=== PATIENT | male | born 1960 | race Caucasian/White ===

== ENCOUNTER 2017-09-06 12:48 | Inpatient (IN) | payer OTHER ==
[~2017-09-06 12:48] MED LIST: ISOVUE-370 76%-LOCM 1 ML ONE
[2017-09-06 13:33] LABS: #Eosinphils 0.3 thou/uL (0.0-0.7); #Lymphocytes 1.3 thou/uL (1.20-3.40); #Monocytes 0.5 thou/uL (0.11-0.59); #Neutrophils 4.6 thou/uL (1.40-6.50); %Basophils 0.2 % (0.0-1.0); %Eosinophils 4.7 % (0.0-10.0); %Lymphocytes 18.7 % (21.0-51.0); %Monocytes 7.7 % (0.0-10.0); %Neutrophils 68.6 % (42.0-75.0); Hemoglobin 12.3 g/dL (14.0-18.0); Mean Corpuscular HGB CONC 33.6 g/dL (32.0-36.0); Mean Corpuscular Hemoglobin 30.9 pg (27.0-31.0); Mean Corpuscular Volume 91.9 fl (80.0-94.0); Mean Platelet Volume 6.1 fL (7.4-10.4); Platelet Count 184 thou/uL (130-400); RBC Distribution Width 14.7 % (11.5-14.5); Red Blood Cell (RBC) Count 3.99 mill/uL (4.70-6.10); White Blood Cell (WBC) Count 6.8 thou/uL (4.8-10.8)
[2017-09-06] MEDS ORDERED: Morphine 4 MG/ML VIAL ONE (13:48)
[2017-09-06] MEDS ORDERED: Ondansetron HCl/PF 4 MG/2 ML Vial ONE (13:48)
[2017-09-06 13:55] LABS: Prothrombin Time 12.8 SEC (12.0-14.7)
[2017-09-06 13:56] LABS: CKMB 0.5 ng/mL (0-6.6); Troponin I Less than 0.010 ng/mL (< 0.028)
[2017-09-06 13:57] LABS: PTT 28.5 SEC (22.9-36.1)
[2017-09-06 13:59] LABS: ALT (SGPT) 53 U/L (8-55); AST (SGOT) 84 U/L (5-34); Albumin 3.9 g/dL (3.5-5.0); Alkaline Phosphatase 84 U/L (40-150); Anion Gap 12 mmol/L (10-20); BUN (Urea Nitrogen) 8 mg/dL (8.4-25.7); Bilirubin, Total 1.2 mg/dL (0.2-1.2); CK (CPK) 60 U/L (30-200); Calc. Creatinine Clearance 0 mL/min (70-130); Calcium 9.3 mg/dL (7.8-10.44); Carbon Dioxide 25 mmol/L (22-29); Chloride 102 mmol/L (98-107); Estimated GFR-MDRD Greater than 90; Globulin 3.3 g/dL (2.4-3.5); Glucose 176 mg/dL (70-105); Lipase 20 U/L (8-78); Potassium 3.4 mmol/L (3.5-5.1); Protein, Total 7.2 g/dL (6.0-8.3); Sodium 136 mmol/L (136-145)
--- NOTE | 2017-09-06 14:21 | RAD ---
PORTABLE CHEST ONE VIEW: Date: 09-06-17 Time: 2:07 p.m. History: Fever, rectal bleeding, abdominal pain, weakness. FINDINGS: Comparison is made with exam of 08-16-17. The heart size is normal. The lungs are expanded without focal areas of consolidation, pneumothorax, or pleural effusions. IMPRESSION: No radiographic evidence of acute cardiopulmonary process. POS: [facility]
--- NOTE | 2017-09-06 15:30 | CT ---
CT OF THE ABDOMEN AND PELVIS: DATE: 09/06/17. COMPARISON: 04/02/17. HISTORY: Abdominal pain with fever and rectal bleeding. TECHNIQUE: Serial axial CT imaging obtained at 5 mm intervals from lung bases through the pubic symphysis with I V contrast. Coronal reformatted imaging obtained. FINDINGS: Oral contrast limits assessment of the bowel. The imaged lung bases are grossly unremarkable. No free intraperitoneal air or fluid is noted. Liver is diffusely hypodense, similar when compared to prior imaging, suggesting hepatic steatosis. There is an area of relative hyperdensity within the anterior aspect of the right lobe of the liver s uperiorly on image 21, similar when compared to imaging dating back to 2015, suggesting a focal area of fatty sparing. The spleen is enlarged, measuring 17 cm in craniocaudal dimension, nonspecific and slightly more prom inent than on the 04/02/17 exam, which may be secondary to technical variation. The pancreas and adrenal glands demonstrate no acute findings. There is a stable fat-containing lesi on within the adrenal gland on the right measuring approximately 3 cm suggesting a stable adrenal mye lolipoma. There is no evidence for obstructive uropathy. The kidneys are unremarkable. There is no evidence for bowel inflammatory change or bowel obstruction. There is no evidence for ap pendicitis. There is mild scattered atherosclerotic calcification of the abdominal aorta. No pelvic or retroperitoneal lymphadenopathy is noted. There is mild mesenteric leeann prominence see n centrally, unchanged when compared to studies dating back to 2015. There is multilevel spinal osteophyte formation as well as multilevel facet hypertrophy. There is no worrisome lytic or blastic bone lesion. The liver is enlarged measuring up to 25.7 cm in craniocaudal dimension, grossly unchanged. There is mild scattered diverticulosis of the descending colon and sigmoid colon with no evidence for diverticulitis. IMPRESSION: 1. Numerous chronic findings as detailed above. No evidence for a bowel obstruction or free intrape ritoneal air. 2. The colon is not optimally assessed via CT. If symptoms persist, direct visualization may be esvin eficial. There is mild diverticulosis without evidence for diverticulitis. POS: [facility]
[2017-09-06 15:35] LABS: Bilirubin Small (Negative); Blood, Urine Negative (Negative); Clarity CLEAR (Clear); Glucose, Urine (Dipstick) Negative (Negative); Leukocyte Negative (Negative); Nitrite Negative (Negative); Protein, Urine (Dipstick) 30 mg/dL (Neg-Trace)
[2017-09-06 15:44] LABS: Bacteria/HPF None Seen HPF (None Seen); Hyaline Casts/LPF 0-3 HYALINE CAST LPF (0-3 Hyaline); RBC/HPF 0-3 HPF (0-3); Squamous Epithelial None Seen HPF (0-3); WBC/HPF 0-3 HPF (0-3)
[2017-09-06] MEDS ORDERED: metroNIDAZOLE 500 MG in Premix Bag 1 BAG IVPB SCH (17:00)
[2017-09-06 17:46] LABS: Lactic Acid 1.3 mmol/L (0.5-2.2)
[2017-09-06] MEDS ORDERED: Ondansetron ODT 4 MG TAB SL PRN (18:39)
[2017-09-06] MEDS ORDERED: Ondansetron HCl/PF 4 MG/2 ML Vial IVP PRN (18:39)
[2017-09-06] MEDS ORDERED: Morphine 4 MG/ML VIAL SLOW IVP PRN (18:39)
[2017-09-06] MEDS ORDERED: Sodium Chloride 0.9% 1,000 ML IV SCH (18:45)
[2017-09-06 20:25] VITALS: BMI 42.5
[2017-09-06] MEDS ORDERED: Dextrose 50% Abboject 50 ML SYRINGE SLOW IVP PRN (20:34)
[2017-09-06] MEDS ORDERED: Dextrose 5% in Water 1,000 ML IV PRN (20:34)
[2017-09-06] MEDS ORDERED: HumaLOG 300 UNITS/3 ML VIAL SC PRN (20:34)
[2017-09-06] MEDS ORDERED: Acetaminophen 325 MG TAB PO PRN (20:34)
[2017-09-06] MEDS: Pantoprazole 40 MG VIAL IVP SCH (21:46)
[2017-09-06] MEDS: Docusate 100 MG CAP PO SCH (21:46)
[2017-09-06] MEDS: Sodium Chloride 0.9% 1,000 ML IV SCH (21:46)
[2017-09-06] MEDS: Metoprolol Tartrate 25 MG TAB PO SCH (21:46)
[2017-09-06] MEDS: clonazePAM 1 MG TAB PO SCH (21:46)
[2017-09-06] MEDS: Gemfibrozil 600 MG TAB PO SCH (21:47)
[2017-09-06] MEDS: Morphine 4 MG/ML VIAL SLOW IVP PRN (21:47)
[2017-09-06] MEDS: metroNIDAZOLE 500 MG in Premix Bag 1 BAG IVPB SCH (22:50)
--- NOTE | 2017-09-07 00:10 | HP ---
REASON FOR ADMISSION: Rectal bleed, possible diverticulitis with abdominal pain. HISTORY OF PRESENT ILLNESS: The patient gives history of having both upper quadrant abdominal pain from yesterday. He has felt feverish at home. He had 2 episodes of bloody bowel movements at home. He states he has had colonoscopy done [place] [address] Arita. He had diverticulosis, which was not worse per Dr. Arita then. The reason for colonoscopy done in 2016 was again right-sided abdominal pain. No nausea or vomiting at present. No cough or expectoration. No prior history of peptic ulcer disease. PAST MEDICAL/SURGICAL HISTORY: Diabetes mellitus type 2, prior colonoscopy done in 2016 showed mild diverticulosis, laparoscopic cholecystectomy, psoriasis with skin involvement, dyslipidemia, hypertension, restless leg syndrome, hemorrhoidectomy, appendectomy. CURRENT MEDICATIONS: The patient is on clonazepam bedtime, metformin 1000 mg p.o. twice daily, Lopressor 100 mg twice daily, gemfibrozil 600 mg p.o. daily, hydrochlorothiazide 25 mg p.o. daily. ALLERGIES: Allergic to PENICILLIN. PERSONAL HISTORY: Does not abuse alcohol or drugs. No history of smoking. FAMILY HISTORY: Mom of heart failure at the age of 74. Father of CABG and its complications at the age of 81 years. He has had history of prostate cancer. CODE STATUS: FULL. Power of fan mail editor is his . REVIEW OF SYSTEMS: The following complete review of systems was negative, unless otherwise mentioned in the HPI or below: Constitutional: Weight loss or gain, ability to conduct usual activities. Skin: Rash, itching. Eyes: Double vision, pain. ENT/Mouth: Nose bleeding, neck stiffness, pain, tenderness. Cardiovascular: Palpitations, dyspnea on exertion, orthopnea. Respiratory: Shortness of breath, wheezing, cough, hemoptysis, fever or night sweats. Gastrointestinal: Poor appetite, abdominal pain, heartburn, nausea, vomiting, constipation, or diarrhea. Genitourinary: Urgency, frequency, dysuria, nocturia. Musculoskeletal: Pain, swelling. Neurologic/Psychiatric: Anxiety, depression. Allergy/Immunologic: Skin rash, bleeding tendency. PHYSICAL EXAMINATION: GENERAL: The patient is a 57-year-old male who is currently having mild abdominal pain. VITAL SIGNS: Blood pressure 160/100, pulse 86 per minute, respiratory rate 20 per minute, temperature 98.6 degrees Fahrenheit, saturating 95% on room air. NECK: Supple, no elevated JVD. HEENT: Eyes, extraocular muscles intact. Pupils reacting to light. Oral cavity, mucous membranes are moist. No exudates or congestion. CARDIOVASCULAR SYSTEM: S1, S2 heard. Regular rhythm. RESPIRATORY SYSTEM: Air entry 1+ bilateral. No rales or rhonchi. ABDOMEN: Soft, bowel sounds heard. There is tenderness plus in the upper quadrants. There is generalized pain in the upper quadrants, more of colicky in nature. He gets relief on lying on the left lateral side. No rigidity or guarding. Bowel sounds are heard. EXTREMITIES: No peripheral edema or calf tenderness. VASCULAR SYSTEM: Peripheral pulses 1+ bilateral. No ischemic ulcerations or gangrene. CENTRAL NERVOUS SYSTEM: No gross focal deficits seen. Patient is alert, awake , oriented well. PSYCHIATRIC: The patient is a bit anxious, otherwise no hallucinations or delusions. LABORATORY AND X-RAY FINDINGS: White count 6.8, H&H 12 and 36, platelet count 184 with 68% neutrophils, MCV is 91. PT, INR, PTT within normal limits. Serum potassium is 3.4, BUN 8, creatinine 0.7, glucose 176, AST 84, ALT 53, total bilirubin 1.2, alkaline phosphatase 84. First set of cardiac enzymes are negative. BNP is 10, albumin is 3.9. Lipase is 20. UA is negative for any infection. Stool occult blood is positive. Chest x-ray done shows no acute cardiopulmonary process. CT of the abdomen and pelvis with IV contrast done shows no bowel obstruction, no free intraperitoneal air. Colon was not optimally assessed. There is mild diverticulosis without evidence of diverticulitis. EKG done shows normal sinus rhythm at 84 beats per minute. CLINICAL IMPRESSION AND PLAN: The patient will be under observation on medical floor for 2 episodes of rectal bleeding with abdominal pain at present. It is unclear if patient has diverticulitis. His abdominal pain is in both upper quadrants, not lower. The pain is colicky in nature. He will be on morphine p.r.n. for pain. We will place him on Cipro and Flagyl for now. H&H q.6 hourly. We will consult Dr. Siddiqui for Gastroenterology. He will be kept n.p.o. and place him on normal saline at 100 mL per hour. Patient can be switched to inpatient status if his abdominal pain does not resolve or his H&H drops. We will continue to closely monitor him on medical floor. TISHA
[2017-09-07] MEDS: Morphine 4 MG/ML VIAL SLOW IVP PRN ×2 (04:58→11:02)
[2017-09-07] MEDS: metroNIDAZOLE 500 MG in Premix Bag 1 BAG IVPB SCH ×3 (05:02→21:04)
[2017-09-07 05:27] LABS: Band 17 % (5-11); Eosinophils 5 % (0-10); Hemoglobin 11.4 g/dL (14.0-18.0); Lymphocytes 33 % (21-51); MDiff Complete? YES; Mean Corpuscular HGB CONC 33.8 g/dL (32.0-36.0); Mean Corpuscular Hemoglobin 31.4 pg (27.0-31.0); Mean Corpuscular Volume 92.9 fl (80.0-94.0); Mean Platelet Volume 6.2 fL (7.4-10.4); Monocytes 8 % (0-10); Neutrophil 37 % (42-75); Platelet Count 172 thou/uL (130-400); RBC Distribution Width 14.8 % (11.5-14.5); Red Blood Cell (RBC) Count 3.64 mill/uL (4.70-6.10); White Blood Cell (WBC) Count 6.3 thou/uL (4.8-10.8)
[2017-09-07] MEDS: metFORMIN 500 MG TAB PO SCH ×2 (08:41→16:05)
[2017-09-07] MEDS: Gemfibrozil 600 MG TAB PO SCH ×2 (08:42→20:56)
[2017-09-07] MEDS: Pantoprazole 40 MG VIAL IVP SCH ×2 (08:42→20:56)
[2017-09-07] MEDS: Docusate 100 MG CAP PO SCH ×2 (08:42→20:55)
[2017-09-07] MEDS: Metoprolol Tartrate 25 MG TAB PO SCH ×2 (08:46→20:56)
[2017-09-07] MEDS: Sodium Chloride 0.9% 1,000 ML IV SCH ×2 (11:00→20:54)
--- NOTE | 2017-09-07 12:07 | PDOC.PN ---
- Subjective Encounter Start Date: 09/07/17 Encounter Start Time: 09:15 Subjective: still has upper quadrant pain -: no nausea, is npo -: no bm yet - Objective Resuscitation Status: Resuscitation Status FULL:Full Resuscitation MAR Reviewed: Yes Vital Signs & Weight: Vital Signs (12 hours) Temp Pulse Resp BP Pulse Ox 09/07/17 11:30 97.8 F 65 18 127/65 98 09/07/17 08:00 97.4 F L 68 16 09/07/17 07:30 97.4 F L 68 16 144/78 H 96 09/07/17 04:15 97.7 F 76 18 134/74 96 I&O: 09/06/17 09/07/17 09/08/17 06:59 06:59 06:59 Intake Total 811 601 Balance 811 601 Result Diagrams: 09/07/17 03:55 09/06/17 13:24 Additional Labs: Accuchecks 09/07/17 09/07/17 09/06/17 11:19 05:01 21:52 POC Glucose 112 H 131 H 99 Phys Exam - Physical Examination HEENT: PERRLA, moist MMs Neck: no JVD, supple Respiratory: no wheezing, no rales Cardiovascular: RRR, no significant murmur Gastrointestinal: soft, no distention, positive bowel sounds more tenderness in RUQ, no rigidity or guarding Musculoskeletal: pulses present Neurological: non-focal, moves all 4 limbs Psychiatric: normal affect, A&O x 3 Dx/Plan (1) Abdominal pain Code(s): R10.9 - UNSPECIFIED ABDOMINAL PAIN Status: Acute Qualifiers: Abdominal location: right upper quadrant Qualified Code(s): R10.11 - Right upper quadrant pain (2) Rectal bleeding Code(s): K62.5 - HEMORRHAGE OF ANUS AND RECTUM Status: Acute (3) HTN (hypertension) Code(s): I10 - ESSENTIAL (PRIMARY) HYPERTENSION Status: Chronic Qualifiers: Hypertension type: essential hypertension Qualified Code(s): I10 - Essential (primary) hypertension (4) DM type 2 (diabetes mellitus, type 2) Status: Chronic Qualifiers: Diabetes mellitus complication status: with unspecified complications Diabetes mellitus custodial insulin use: without custodial use Qualified Code( s): E11.8 - Type 2 diabetes mellitus with unspecified complications (5) Dyslipidemia Code(s): E78.5 - HYPERLIPIDEMIA, UNSPECIFIED Status: Chronic (6) Obesity Code(s): E66.9 - OBESITY, UNSPECIFIED Status: Chronic Qualifiers: Obesity classification: adult class 3 (BMI >= 40) Body mass index: BMI 40.0 -44.9 - Plan still has abd pain, has bandemia with normal wbc -: repeat ekg -: GI consultation -: will switch to inpatient status -: ?diverticulitis in transverse colon/pud * . Review of Systems - Medications/Allergies Allergies/Adverse Reactions: Allergies Allergy/AdvReac Type Severity Reaction Status Date / Time Penicillins Allergy Verified 09/06/17 16:53 Medications: Current Medications Acetaminophen (Tylenol) 650 mg PO Q4H PRN PRN Reason: Headache/Fever or Pain Clonazepam (Klonopin) 1 mg PO HS [facility] Last Admin: 09/06/17 21:46 Dose: 1 mg Dextrose/Water (Dextrose 50%) 25 gm SLOW IVP PRN PRN PRN Reason: Hypoglycemia Docusate Sodium (Colace) 100 mg PO BID [facility] Last Admin: 09/07/17 08:42 Dose: Not Given Gemfibrozil (Lopid) 600 mg PO BID [facility] Last Admin: 09/07/17 08:42 Dose: Not Given Glucagon (Glucagon) 1 mg IM PRN PRN PRN Reason: Hypoglycemia Ciprofloxacin/Dextrose 400 mg/ (Device) 200 mls @ 200 mls/hr IVPB Q12HR [facility] Last Admin: 09/07/17 08:41 Dose: 200 mls Dextrose/Water (D5w) 1,000 mls @ 0 mls/hr IV .Q0M PRN; As Directed PRN Reason: Hypoglycemia Metronidazole 500 mg/ Device 100 mls @ 100 mls/hr IVPB Q8HR [facility] Last Admin: 09/07/17 05:02 Dose: 100 mls Sodium Chloride (Normal Saline 0.9%) 1,000 mls @ 100 mls/hr IV .Q10H [facility] Last Admin: 09/07/17 11:00 Dose: 1,000 mls Insulin Human Lispro (Humalog) 0 units SC .MILD SLIDING SCALE PRN PRN Reason: Mild Correctional Scale Metformin HCl (Glucophage) 500 mg PO BID-AC [facility] Last Admin: 09/07/17 08:41 Dose: Not Given Metoprolol Tartrate (Lopressor) 25 mg PO BID [facility] Last Admin: 09/07/17 08:46 Dose: 25 mg Morphine Sulfate (Morphine) 4 mg SLOW IVP Q6H PRN PRN Reason: PAIN 7-10 Last Admin: 09/07/17 11:02 Dose: 4 mg Pantoprazole Sodium (Protonix) 40 mg IVP Q12HR [facility] Last Admin: 09/07/17 08:42 Dose: 40 mg Sodium Chloride (Flush - Normal Saline) 10 ml FS Q12HR [facility] Last Admin: 09/07/17 08:47 Dose: 10 ml Sodium Chloride (Flush - Normal Saline) 10 ml IVF PRN PRN PRN Reason: Saline Flush Last Admin: 09/07/17 11:00 Dose: 10 ml
[2017-09-07] MEDS: clonazePAM 1 MG TAB PO SCH (20:55)
[2017-09-08] MEDS ORDERED: Hyoscyamine Sulfate SL 0.125 mg Tablet PO PRN (00:44)
[2017-09-08] MEDS: Sodium Chloride 0.9% 1,000 ML IV SCH ×2 (04:12→23:49)
--- NOTE | 2017-09-08 05:47 | CON ---
DATE OF CONSULTATION: 09/07/2017 HISTORY OF PRESENT ILLNESS: The patient is a 57-year-old white male who reports bilateral abdominal pain in the periumbilical upper abdomen area that has been going on for several days. He had a coupl e of bloody bowel movements. He had a colonoscopy done in 06/2016 which showed diverticula, but no o ther abnormalities. He has had no nausea, vomiting, no cough, no fever or chills. PAST MEDICAL HISTORY: Significant for diabetes mellitus, diverticulosis, hypertension, psoriasis, re stless leg syndrome. PAST SURGICAL HISTORY: Hemorrhoidectomy, appendectomy. MEDICATIONS: At home include metformin 1000 mg p.o. b.i.d., hydrochlorothiazide 25 mg p.o. daily, Lo pid 600 mg p.o. b.i.d., Nexium 20 mg p.o. daily, metoprolol 100 mg p.o. daily, Klonopin 1 p.o. at bed time. ALLERGIES: PENICILLIN. SOCIAL HISTORY: Does not smoke or drink. FAMILY HISTORY: Negative for GI or liver disease. REVIEW OF SYSTEMS: Ten systems were reviewed and were negative except for above. PHYSICAL EXAMINATION: GENERAL: Shows an obese white male in no acute distress. VITAL SIGNS: Temperature 98.0, pulse 72, respiration 12, blood pressure 131/73. HEENT: Unremarkable. NECK: Supple. CHEST: Clear. CARDIOVASCULAR: Regular rate and rhythm without murmurs or gallops. ABDOMEN: Soft, nontender, without organomegaly or masses. Bowel sounds present and normoactive. RECTAL: Deferred. EXTREMITIES: Normal. NEUROLOGIC: Nonfocal. LABORATORY: Shows a white blood cell count 6.3, hemoglobin on admission was 12.3, repeat is 11.4, MC V of 92.9. PT is 12.8 with an INR of 1.0. Chemistries show potassium 3.4, glucose 176, AST of 84. Reports shows abdominal pelvic CT showed numerous chronic findings, colon is not optimally assessed b y CT scan. ASSESSMENT: 1. Abdominal pain with a small amount of GI bleeding -- this possibly could be some atypical diverti culitis. Considering the patient has had an EGD and colonoscopy approximately 15 months ago, I am no t worried about neoplasm. 2. Diabetes mellitus. 3. Obesity. RECOMMENDATIONS: 1. Continue metronidazole and Cipro for 10 days and this could be switched to oral and the patient c ould complete this as an outpatient. 2. Feeding trial. 3. Follow up with GI as outpatient. 4. Begin a diet.
[2017-09-08] MEDS: metroNIDAZOLE 500 MG in Premix Bag 1 BAG IVPB SCH ×3 (06:37→23:47)
[2017-09-08] MEDS: Gemfibrozil 600 MG TAB PO SCH ×2 (08:34→21:44)
[2017-09-08] MEDS: Docusate 100 MG CAP PO SCH ×2 (08:34→21:45)
[2017-09-08] MEDS: Metoprolol Tartrate 25 MG TAB PO SCH ×2 (08:34→21:44)
[2017-09-08] MEDS: Pantoprazole 40 MG VIAL IVP SCH (08:39)
[2017-09-08] MEDS: metFORMIN 500 MG TAB PO SCH ×2 (08:43→16:05)
--- NOTE | 2017-09-08 18:12 | PRG ---
DATE OF SERVICE: 09/08/2017 SUBJECTIVE: The patient is doing well. He complains of some abdominal cramps and bloated feeling. He has had no nausea or vomiting. He is tolerating full liquids well. He has had some yellowish liq uid bowel movements today. OBJECTIVE: VITAL SIGNS: Temperature 97.8, pulse 70, respiratory rate 16 and blood pressure 144/85. CHEST: Clear. CARDIOVASCULAR: Regular rate and rhythm. ABDOMEN: Soft and nontender, without organomegaly or masses. Bowel sounds are present. LABORATORY DATA: Shows a glucose of 107. ASSESSMENT: 1. Hematochezia - resolved. 2. Abdominal pain - may be atypical diverticulitis. 3. Diabetes mellitus. 4. Irritable bowel syndrome. RECOMMENDATIONS: 1. Continue metronidazole and Cipro for a total of 10 days. 2. Advance diet. 3. Follow up with GI as an outpatient. 4. We will sign off.
--- NOTE | 2017-09-08 20:26 | PDOC.PN ---
- Subjective Encounter Start Date: 09/08/17 Encounter Start Time: 17:30 Patient seen and examined. Abd pain + - slightly better. No new GI bleed. No overnight events - Objective Resuscitation Status: Resuscitation Status FULL:Full Resuscitation MAR Reviewed: Yes Vital Signs & Weight: Vital Signs (12 hours) Temp Pulse Resp BP Pulse Ox 09/08/17 19:40 98.7 F 79 18 133/67 96 I&O: 09/07/17 09/08/17 09/09/17 06:59 06:59 06:59 Intake Total 811 1711 Balance 811 1711 Result Diagrams: 09/07/17 03:55 09/06/17 13:24 Additional Labs: Accuchecks 09/08/17 09/08/17 09/08/17 16:28 11:44 05:26 POC Glucose 95 107 119 H 09/07/17 20:16 POC Glucose 116 H Radiology Reviewed by me: Yes (CT abd - neg) Phys Exam - Physical Examination Constitutional: NAD Respiratory: no wheezing, no rhonchi Cardiovascular: RRR, no rub Gastrointestinal: soft, positive bowel sounds mild gen tend, no guarding/rigidity Musculoskeletal: no edema Neurological: moves all 4 limbs Dx/Plan - Plan DVT proph w/SCDs IMPRESSION: 1. Acute diverticular bleed with atypical diverticulitis 2. Acute blood loss anemia 3. Hypokalemia 4. DM2 5. Morbid Obesity BMI 42.5/HTN/Anxiety/IBS/Dyslipidemia PLAN: * Change Atbx to PO - Complete 10 days per GI * Cont to advance diet * DC in AM if stable * AM labs * A1c in AM per family req * DC Metformin (Patient thinks this may be causing GI problems) * Cont to monitor Review of Systems - Review of Systems Respiratory: negative: Cough, Dry, Shortness of Breath, Hemoptysis, SOB with Excertion, Pleuritic Pain, Sputum, Wheezing Cardiovascular: negative: chest pain, palpitations, orthopnea, paroxysmal nocturnal dyspnea, edema, light headedness - Medications/Allergies Allergies/Adverse Reactions: Allergies Allergy/AdvReac Type Severity Reaction Status Date / Time Penicillins Allergy Verified 09/06/17 16:53 Medications: Current Medications Acetaminophen (Tylenol) 650 mg PO Q4H PRN PRN Reason: Headache/Fever or Pain Ciprofloxacin (Cipro) 500 mg PO 0600,2000 [facility] Clonazepam (Klonopin) 1 mg PO HS [facility] Last Admin: 09/07/17 20:55 Dose: 1 mg Dextrose/Water (Dextrose 50%) 25 gm SLOW IVP PRN PRN PRN Reason: Hypoglycemia Docusate Sodium (Colace) 100 mg PO BID [facility] Last Admin: 09/08/17 08:34 Dose: Not Given Gemfibrozil (Lopid) 600 mg PO BID [facility] Last Admin: 09/08/17 08:34 Dose: 600 mg Glucagon (Glucagon) 1 mg IM PRN PRN PRN Reason: Hypoglycemia Hyoscyamine Sulfate (Levsin Sl) 0.125 mg PO Q4H PRN PRN Reason: Pain Ciprofloxacin/Dextrose 400 mg/ (Device) 200 mls @ 200 mls/hr IVPB Q12HR [facility] Stop: 09/08/17 23:59 Last Admin: 09/08/17 08:42 Dose: 200 mls Dextrose/Water (D5w) 1,000 mls @ 0 mls/hr IV .Q0M PRN; As Directed PRN Reason: Hypoglycemia Metronidazole 500 mg/ Device 100 mls @ 100 mls/hr IVPB Q8HR [facility] Stop: 09/08/17 23:59 Last Admin: 09/08/17 14:15 Dose: 100 mls Sodium Chloride (Normal Saline 0.9%) 1,000 mls @ 50 mls/hr IV .Q20H [facility] Insulin Human Lispro (Humalog) 0 units SC .MILD SLIDING SCALE PRN PRN Reason: Mild Correctional Scale Metoprolol Tartrate (Lopressor) 25 mg PO BID [facility] Last Admin: 09/08/17 08:34 Dose: 25 mg Metronidazole (Flagyl) 500 mg PO TID [facility] Pantoprazole Sodium (Protonix) 40 mg PO DAILY [facility] Saccharomyces Boulardii (Florastor) 250 mg PO DAILY [facility] Sodium Chloride (Flush - Normal Saline) 10 ml FS Q12HR [facility] Last Admin: 09/08/17 08:39 Dose: 10 ml Sodium Chloride (Flush - Normal Saline) 10 ml IVF PRN PRN PRN Reason: Saline Flush Last Admin: 09/07/17 11:00 Dose: 10 ml
[2017-09-08] MEDS: clonazePAM 1 MG TAB PO SCH (21:44)
[2017-09-09 05:08] LABS: #Eosinphils 0.3 thou/uL (0.0-0.7); #Lymphocytes 1.8 thou/uL (1.20-3.40); #Monocytes 0.5 thou/uL (0.11-0.59); #Neutrophils 4.5 thou/uL (1.40-6.50); %Basophils 0.2 % (0.0-1.0); %Eosinophils 4.1 % (0.0-10.0); %Lymphocytes 25.9 % (21.0-51.0); %Monocytes 6.4 % (0.0-10.0); %Neutrophils 63.4 % (42.0-75.0); Hemoglobin 11.4 g/dL (14.0-18.0); Mean Corpuscular HGB CONC 33.2 g/dL (32.0-36.0); Mean Corpuscular Hemoglobin 30.8 pg (27.0-31.0); Mean Corpuscular Volume 92.8 fl (80.0-94.0); Mean Platelet Volume 6.2 fL (7.4-10.4); Platelet Count 181 thou/uL (130-400); RBC Distribution Width 14.6 % (11.5-14.5); Red Blood Cell (RBC) Count 3.71 mill/uL (4.70-6.10); White Blood Cell (WBC) Count 7.1 thou/uL (4.8-10.8)
[2017-09-09 05:37] LABS: Albumin 3.5 g/dL (3.5-5.0); Anion Gap 11 mmol/L (10-20); BUN (Urea Nitrogen) 4 mg/dL (8.4-25.7); BUN/Creatinine Ratio 5.88; Calc. Creatinine Clearance 240 mL/min (70-130); Calcium 9.1 mg/dL (7.8-10.44); Carbon Dioxide 26 mmol/L (22-29); Chloride 103 mmol/L (98-107); Estimated GFR-MDRD Greater than 90; Glucose 152 mg/dL (70-105); Magnesium 2.2 mg/dL (1.6-2.6); Phosphorus 3.6 mg/dL (2.3-4.7); Potassium 3.4 mmol/L (3.5-5.1); Sodium 137 mmol/L (136-145)
[2017-09-09] MEDS ORDERED: Ciprofloxacin 500 MG TAB PO SCH (06:00)
[2017-09-09] MEDS: Sodium Chloride 0.9% 1,000 ML IV SCH (06:27)
[2017-09-09] MEDS: Docusate 100 MG CAP PO SCH (08:41)
[2017-09-09] MEDS: metroNIDAZOLE 500 MG TAB PO SCH ×2 (08:42→15:09)
[2017-09-09] MEDS: Gemfibrozil 600 MG TAB PO SCH (08:42)
[2017-09-09] MEDS: Metoprolol Tartrate 25 MG TAB PO SCH (08:42)
[2017-09-09] MEDS ORDERED: Saccharomyces boulardii 250 MG CAP PO SCH (09:00)
--- NOTE | 2017-09-09 11:32 | PDOC.PN ---
- Subjective Encounter Start Date: 09/09/17 Encounter Start Time: 11:31 Patient seen at bedside. No abdominal pain, no further bleeding. - Objective Resuscitation Status: Resuscitation Status FULL:Full Resuscitation MAR Reviewed: Yes Vital Signs & Weight: Vital Signs (12 hours) Temp Pulse Resp BP Pulse Ox 09/09/17 08:00 97.6 F 68 20 09/09/17 07:40 97.6 F 68 20 153/81 H 97 I&O: 09/08/17 09/09/17 09/10/17 06:59 06:59 06:59 Intake Total 1711 500 360 Balance 1711 500 360 Result Diagrams: 09/09/17 03:59 09/09/17 03:59 Additional Labs: Accuchecks 09/09/17 09/08/17 09/08/17 05:33 23:55 20:01 POC Glucose 135 H 169 H 137 H 09/08/17 09/08/17 16:28 11:44 POC Glucose 95 107 Phys Exam - Physical Examination Constitutional: NAD HEENT: moist MMs Neck: no JVD Respiratory: no rales, clear to auscultation bilateral Cardiovascular: RRR Gastrointestinal: soft Musculoskeletal: pulses present Neurological: moves all 4 limbs Psychiatric: A&O x 3 Dx/Plan (1) Diverticulitis Code(s): K57.92 - DVTRCLI OF INTEST, PART UNSP, W/O PERF OR ABSCESS W/O BLEED Status: Acute (2) Rectal bleeding Code(s): K62.5 - HEMORRHAGE OF ANUS AND RECTUM Status: Acute (3) DM type 2 (diabetes mellitus, type 2) Status: Chronic Qualifiers: Diabetes mellitus complication status: with unspecified complications Diabetes mellitus long term care administrator insulin use: without half-way use Qualified Code( s): E11.8 - Type 2 diabetes mellitus with unspecified complications (4) Dyslipidemia Code(s): E78.5 - HYPERLIPIDEMIA, UNSPECIFIED Status: Chronic (5) HTN (hypertension) Code(s): I10 - ESSENTIAL (PRIMARY) HYPERTENSION Status: Chronic Qualifiers: Hypertension type: essential hypertension Qualified Code(s): I10 - Essential (primary) hypertension - Plan cont current plan of care, continue antibiotics * D/C home with PO ABX (Cipro and Flagyl). * F/U GI
[2017-09-09 16:26] VITALS: BP 153/81; TEMP 97.6
--- NOTE | 2017-09-09 19:20 | DIS ---
DATE OF ADMISSION: 09/06/2017 DATE OF DISCHARGE: 09/09/2017 DISCHARGE DISPOSITION: Home. DISCHARGE FOLLOWUP: With Dr. Arita in 4-6 weeks. DISCHARGE DIAGNOSES: 1. Hematochezia secondary to diverticular bleed. 2. Diabetes mellitus type 2. 3. Irritable bowel syndrome. 4. Hypertension. 5. Dyslipidemia. DISCHARGE MEDICATIONS: 1. Ciprofloxacin 500 mg p.o. b.i.d. for the next 7 days. 2. Klonopin 1 mg p.o. at bedtime. 3. Nexium 20 mg p.o. daily. 4. Gemfibrozil 600 mg p.o. b.i.d. a.c. 5. Hydrochlorothiazide 25 mg p.o. daily. 6. Metformin 1000 mg p.o. b.i.d. 7. Lopressor 100 mg p.o. daily. 8. Flagyl 500 mg p.o. t.i.d. for the next 7 days. 9. Florastor 250 mg p.o. daily. INPATIENT CONSULTATIONS: Dr. Siddiqui, Gastroenterology. INPATIENT PROCEDURES: None. INPATIENT RADIOGRAPHIC EXAMINATIONS: 1. Chest x-ray showed no evidence of acute cardiopulmonary process. 2. CT of the abdomen and pelvis, no evidence of bowel obstruction or free intraperitoneal air. BRIEF HOSPITAL COURSE: Mr. Ian Hines is a 57-year-old male seen with a past medical history of diabetes mellitus type 2, diverticulosis, dyslipidemia, hypertension, who presents to the emergency r oom complaining of rectal bleed. He was then subsequently admitted to the medical floor and was eval uated by Gastroenterology. Gastroenterology felt that this was most likely due to atypical diverticu litis with a subsequent diverticular bleed. He was started on IV Cipro and Flagyl. His hemoglobin h ere has remained stable. His bleeding has resolved. He has been transitioned to oral antibiotics. He will require follow up with GI for possible repeat colonoscopy and imaging. The patient is feelin g much better. He is clinically appropriate for discharge home and discharged home later today in st able condition. DISCHARGE DIET: Heart healthy, diabetic. ACTIVITY: As tolerated. RESTRICTIONS: None. CODE STATUS: FULL CODE. ALLERGIES: PENICILLINS. DISCHARGE FOLLOWUP: With GI as an outpatient. I have explained all this to the patient at bedside. He is agreeable to the plan of discharge. All questions have been answered. The patient's total discharge time 34 minutes.
--- NOTE | 2017-09-13 19:40 | EKG ---
Test Reason : Blood Pressure : / mmHG Vent. Rate : 070 BPM Atrial Rate : 070 BPM P-R Int : 194 ms QRS Dur : 158 ms QT Int : 450 ms P-R-T Axes : 030 -25 019 degrees QTc Int : 486 ms Normal sinus rhythm Right bundle branch block Abnormal ECG When compared with ECG of 06-SEP-2017 13:00, (Unconfirmed) Questionable change in QRS duration Confirmed by YESICA RENE ([id number]) on 09/13/2017 7:40:13 PM Referred By: RADHA Confirmed By:YESICA RENE
--- NOTE | 2017-09-29 15:14 | EKG ---
Test Reason : Blood Pressure : / mmHG Vent. Rate : 084 BPM Atrial Rate : 084 BPM P-R Int : 172 ms QRS Dur : 132 ms QT Int : 390 ms P-R-T Axes : 013 -45 013 degrees QTc Int : 460 ms Normal sinus rhythm Left axis deviation Right bundle branch block Minimal voltage criteria for LVH, may be normal variant Inferior infarct , age undetermined Abnormal ECG Confirmed by KIRAN TAVERAS, TREY ([id number]), fashion editor KUMAR HOWE ([id number]) on 09/29/2017 3:14:13 PM Referred By: Confirmed By:TREY BECK MD
== END 2017-09-09 15:19 | disposition home or self-care (01) | DRG 378 ==
LOC: ERS 12:48 → ONC 17:54 → OBSVTOIN 17:54
PROVIDERS: ADMIT Internal Medicine; ATTEND Internal Medicine
DX: K57.91 Diverticulosis of intestine, part unspecified, without perforation or abscess with bleeding (principal); Z68.41 Body mass index [BMI] 40.0-44.9, adult; D62 Acute posthemorrhagic anemia; E66.01 Morbid (severe) obesity due to excess calories; E11.9 Type 2 diabetes mellitus without complications; E78.5 Hyperlipidemia, unspecified; I10 Essential (primary) hypertension; K58.9 Irritable bowel syndrome, unspecified; E87.6 Hypokalemia; Z88.0 Allergy status to penicillin; Z82.49 Family history of ischemic heart disease and other diseases of the circulatory system; Z80.42 Family history of malignant neoplasm of prostate
CPT/HCPCS: 36415; 36416; 71045; 74177; 80053; 80069; 81003; 81015; 82274; 82553; 83036; 83605; 83690; 83735; 83880; 84484; 85025; 85610; 85730; 86850; 86900; 86901; 87040; 87045; 87046; 87449; 87899; 93005; 93010; 96361; 96365; 96375; A4216; C9113; J0744; J1956; J2270; J2405

== ENCOUNTER 2018-09-15 14:18 | Inpatient (IN) | payer OTHER ==
[2018-09-15 14:47] LABS: #Basophils 0.1 thou/uL (0.0-0.2); #Eosinphils 0.2 thou/uL (0.0-0.7); #Lymphocytes 1.2 thou/uL (1.20-3.40); #Monocytes 0.6 thou/uL (0.11-0.59); #Neutrophils 6.7 thou/uL (1.40-6.50); %Basophils 0.7 % (0.0-1.0); %Eosinophils 2.4 % (0.0-10.0); %Lymphocytes 13.8 % (21.0-51.0); %Monocytes 7.2 % (0.0-10.0); %Neutrophils 75.9 % (42.0-75.0); Hemoglobin 13.7 g/dL (14.0-18.0); Mean Corpuscular HGB CONC 33.9 g/dL (32.0-36.0); Mean Corpuscular Hemoglobin 30.4 pg (27.0-31.0); Mean Corpuscular Volume 89.7 fL (78.0-98.0); Mean Platelet Volume 6.6 fL (7.4-10.4); Platelet Count 235 thou/uL (130-400); RBC Distribution Width 14.8 % (11.5-14.5); White Blood Cell (WBC) Count 8.8 thou/uL (4.8-10.8)
--- NOTE | 2018-09-15 14:48 | RAD ---
PORTABLE UPRIGHT FRONTAL CHEST RADIOGRAPH: DATE: 09/15/2018. COMPARISON: 09/06/2017. HISTORY: Cough and shortness of breath. FINDINGS: There is patchy new increased density in the left lung base lateral to the left heart border suggesti ng infectious pneumonitis. No focal consolidation or pneumothorax. No pleural fluid. IMPRESSION: Patchy new left basilar opacity suspicious for infectious pneumonitis. Followup imaging following tr eatment to document resolution advised. POS: [facility]
[2018-09-15] MEDS ORDERED: Ketorolac Tromethamine 30 MG/ML VIAL ONE (15:05)
[2018-09-15] MEDS ORDERED: Dexamethasone 10 MG/ML VIAL ONE (15:05)
[2018-09-15 15:10] LABS: ALT (SGPT) 49 U/L (8-55); AST (SGOT) 67 U/L (5-34); Albumin 4.3 g/dL (3.5-5.0); Alkaline Phosphatase 99 U/L (40-150); Anion Gap 17 mmol/L (10-20); BUN (Urea Nitrogen) 10 mg/dL (8.4-25.7); Bilirubin, Total 0.9 mg/dL (0.2-1.2); Calc. Creatinine Clearance 0 mL/min (70-130); Calcium 9.4 mg/dL (7.8-10.44); Carbon Dioxide 22 mmol/L (22-29); Chloride 102 mmol/L (98-107); Estimated GFR-MDRD Greater than 90; Glucose 112 mg/dL (70-105); Protein, Total 8.3 g/dL (6.0-8.3); Sodium 137 mmol/L (136-145)
[2018-09-15] MEDS ORDERED: Temazepam 15 MG CAP PO SCH (22:45)
[2018-09-16] MEDS ORDERED: Ondansetron PF 4 MG/2 ML Vial IVP PRN (01:17)
[2018-09-16] MEDS ORDERED: Ondansetron ODT 4 MG TAB SL PRN (01:17)
[2018-09-16] MEDS ORDERED: Albuterol Sulfate 2.5 mg/3 ml Neb NEB PRN (01:19)
[2018-09-16 01:26] VITALS: BMI 42.0
[2018-09-16] MEDS ORDERED: Calcium Carbonate 500 MG ChewTAB PO PRN (05:46)
[2018-09-16] MEDS ORDERED: Bisacodyl 5 MG TAB PO PRN (05:46)
[2018-09-16] MEDS ORDERED: Acetaminophen 325 MG TAB PO PRN (05:46)
[2018-09-16] MEDS ORDERED: Senokot S 8.6-50 MG TAB PO PRN (05:46)
[2018-09-16] MEDS ORDERED: Dextrose 50% Abboject 50 ML SYRINGE SLOW IVP PRN (05:48)
[2018-09-16] MEDS ORDERED: Dextrose 5% in Water 1,000 ML IV PRN (05:48)
[2018-09-16] MEDS ORDERED: cefTRIAXone\\ROCEPHIN 2 GM in Sodium Chloride 0.9% 100 ML IVPB SCH (06:00)
[2018-09-16] MEDS ORDERED: Guaifenesin DM 100-10/5 ML UDCUP PO PRN (06:00)
[2018-09-16] MEDS: HumaLOG 300 UNITS/3 ML VIAL SC PRN ×4 (06:35→21:57)
[2018-09-16 07:31] LABS: Legionella Urinary Ag Negative (Negative); Strep pneumo Urine Ag NEGATIVE (NEGATIVE)
[2018-09-16] MEDS ORDERED: Azithromycin 500 MG in Sodium Chloride 0.9% 250 ML 250 ML IVPB SCH (08:00)
[2018-09-16] MEDS: Benzonatate 100 MG CAP PO SCH ×3 (08:48→20:26)
[2018-09-16] MEDS: Enoxaparin Sodium 40 MG/0.4 ML SYRINGE SC SCH (08:48)
[2018-09-16] MEDS: Escitalopram Oxalate 10 mg Tablet PO SCH (08:49)
[2018-09-16] MEDS: Famotidine 20 MG TAB PO SCH ×2 (08:49→20:26)
[2018-09-16] MEDS: Hydrochlorothiazide 25 MG TAB PO SCH (08:50)
[2018-09-16] MEDS: Metoprolol Tartrate 100 MG TAB PO SCH (08:50)
[2018-09-16] MEDS: Gabapentin 100 MG CAP PO SCH ×2 (08:50→21:58)
[2018-09-16] MEDS: Pioglitazone HCl 15 MG TAB PO SCH (08:50)
[2018-09-16] MEDS ORDERED: Famotidine/PF 20 mg/2ml Vial SLOW IVP SCH (09:00)
[2018-09-16 11:52] LABS: #Lymphocytes 1.1 thou/uL (1.20-3.40); #Monocytes 0.2 thou/uL (0.11-0.59); #Neutrophils 10.6 thou/uL (1.40-6.50); %Eosinophils 0.2 % (0.0-10.0); %Lymphocytes 9.1 % (21.0-51.0); %Monocytes 1.6 % (0.0-10.0); %Neutrophils 89.2 % (42.0-75.0); Hemoglobin 12.8 g/dL (14.0-18.0); Mean Corpuscular HGB CONC 33.1 g/dL (32.0-36.0); Mean Corpuscular Hemoglobin 29.6 pg (27.0-31.0); Mean Corpuscular Volume 89.4 fL (78.0-98.0); Mean Platelet Volume 6.5 fL (7.4-10.4); Platelet Count 250 thou/uL (130-400); RBC Distribution Width 14.7 % (11.5-14.5); Red Blood Cell (RBC) Count 4.33 mill/uL (4.70-6.10); White Blood Cell (WBC) Count 11.9 thou/uL (4.8-10.8)
[2018-09-16 12:41] LABS: ALT (SGPT) 38 U/L (8-55); AST (SGOT) 47 U/L (5-34); Alkaline Phosphatase 90 U/L (40-150); Anion Gap 14 mmol/L (10-20); BUN (Urea Nitrogen) 11 mg/dL (8.4-25.7); Bilirubin, Total 0.7 mg/dL (0.2-1.2); Calc. Creatinine Clearance 204 mL/min (70-130); Calcium 9.6 mg/dL (7.8-10.44); Carbon Dioxide 22 mmol/L (22-29); Chloride 103 mmol/L (98-107); Estimated GFR-MDRD Greater than 90; Globulin 3.9 g/dL (2.4-3.5); Glucose 232 mg/dL (70-105); Potassium 4.1 mmol/L (3.5-5.1); Protein, Total 7.9 g/dL (6.0-8.3); Sodium 135 mmol/L (136-145)
--- NOTE | 2018-09-16 14:26 | PDOC.PN ---
- Subjective Encounter Start Date: 09/16/18 Encounter Start Time: 08:00 Subjective: Continues with cough, no hemoptysis. Afebrile. -: Upper abdo discomfort and chest soreness due to coughing fits. -: Denies any n/v. No headaches. No dizziness. Eating/drinking. Hx of pneumonia in the past. Also history of bronchitis 2-3 times a year. - Objective Resuscitation Status - Order Detail: 09/16/18 05:46 Resuscitation Status Routine Resuscitation Status: FULL: Full Resuscitation Vital Signs & Weight: Vital Signs (12 hours) Temp Pulse Resp BP Pulse Ox 09/16/18 11:09 98.3 F 70 18 163/79 H 96 09/16/18 07:20 98.3 F 75 17 164/82 H 100 09/16/18 02:57 97.7 F 83 24 H 139/66 97 09/16/18 02:33 76 12 93 L Weight Weight 301 lb 4.8 oz I&O: 09/15/18 09/16/18 09/17/18 06:59 06:59 06:59 Intake Total 200 360 Output Total 425 Balance -225 360 Result Diagrams: 09/16/18 11:35 09/16/18 11:35 Additional Labs: Accuchecks 09/16/18 09/16/18 10:26 06:29 POC Glucose 220 H 204 H Phys Exam - Physical Examination Constitutional: NAD HEENT: PERRLA, moist MMs Neck: no nodes, supple, full ROM Respiratory: no wheezing bibasalar rales Cardiovascular: RRR, no significant murmur Gastrointestinal: soft, no distention, positive bowel sounds Mildly sore with palpation of upper abdomen No guarding/rigidity Musculoskeletal: no edema, pulses present Neurological: non-focal, normal sensation, moves all 4 limbs Psychiatric: normal affect, A&O x 3 Skin: no rash, normal turgor Dx/Plan (1) Pneumonia Code(s): J18.9 - PNEUMONIA, UNSPECIFIED ORGANISM Status: Acute Qualifiers: Lung location: lower lobe of lung (2) DM type 2 (diabetes mellitus, type 2) Status: Chronic Qualifiers: Diabetes mellitus intermediate school teacher insulin use: without alf use Diabetes mellitus complication status: with unspecified complications Qualified Code(s) : E11.8 - Type 2 diabetes mellitus with unspecified complications (3) Dyslipidemia Code(s): E78.5 - HYPERLIPIDEMIA, UNSPECIFIED Status: Chronic (4) HTN (hypertension) Code(s): I10 - ESSENTIAL (PRIMARY) HYPERTENSION Status: Chronic Qualifiers: Hypertension type: essential hypertension Qualified Code(s): I10 - Essential (primary) hypertension (5) Obesity Code(s): E66.9 - OBESITY, UNSPECIFIED Status: Chronic Qualifiers: Obesity classification: adult class 3 (BMI >= 40) Body mass index: BMI 40.0 -44.9 - Plan cont current plan of care, continue antibiotics, out of bed/ambulate Awaiting pulmonary. -: Resp culture requested -: Continue nebs. -: Guaifenesin for cough. -: Check labs today. * .
[2018-09-16] MEDS: Budesonide 0.25 MG/2 ML NEB INH SCH ×2 (15:08→18:12)
[2018-09-16] MEDS: cefTRIAXone\\ROCEPHIN 2 GM in Sodium Chloride 0.9% 100 ML IVPB SCH (19:48)
[2018-09-16] MEDS: Rosuvastatin 10 MG TAB PO SCH (20:26)
[2018-09-16] MEDS: guaiFENesin ER 600 MG TAB PO SCH (20:27)
--- NOTE | 2018-09-16 21:22 | HP ---
CHIEF COMPLAINT: Shortness of breath. HISTORY OF PRESENT ILLNESS: This is a 58-year-old male with past medical history significant for diabetes mellitus type 2, hyperlipidemia, hypertension, and restless legs syndrome, presenting with cough and shortness of breath. The patient has shortness of breath and cough started 4 days prior to the day of admission, and the patient states that he had an episode of vomiting after severe coughing spells. The patient also reports having some tightness and wheezing. The patient went to an outpatient urgent care physician, who prescribed the patient with azithromycin and the patient states that he has been taking azithromycin, but has not helped. The patient is now complaining of severe abdominal and rib cage pain due to increased coughing. At this point, the patient stated that he has some decrease in appetite and the patient denies any sick contact or any recent travel history. At this point, the patient denies any headaches, dizziness, wheezing, chest pain, palpitations, abdominal pain, nausea, diarrhea, constipation, hematochezia, or melena. REVIEW OF SYSTEMS: Positive for shortness of breath, cough, wheezing, rib cage pain, decreased appetite. Otherwise, as documented in the history of present illness, all other systems have been reviewed and are negative. PAST MEDICAL HISTORY: 1. Diabetes mellitus type 2. 2. Hypertension. 3. Hyperlipidemia. 4. Restless legs syndrome. FAMILY HISTORY: Reviewed and noncontributory. PAST SURGICAL HISTORY: The patient has; 1. Cholecystectomy. 2. Appendectomy. 3. Hemorrhoidectomy. PSYCHIATRIC HISTORY: Anxiety, PTSD. SOCIAL HISTORY: The patient lives at home. Denies illicit drug use. Denies any smoking history. ALLERGIES: THE PATIENT IS ALLERGIC TO PENICILLIN. CURRENT MEDICATIONS: The patient takes; 1. Hydrochlorothiazide 25 mg daily. 2. Clonazepam 1 mg daily. 3. Metoprolol succinate 100 mg a day. 4. Metformin 1000 b.i.d. 5. Pioglitazone 30 mg. 6. Gabapentin 300 mg b.i.d. 7. Lexapro 10 mg daily. PHYSICAL EXAMINATION: VITAL SIGNS: The patient's blood pressure is 135/80, pulse of 102, respiratory rate of 20, temperature is 98.4, oxygenation is 94% on room air. GENERAL: The patient is lying in bed, coughing, and appears very fatigued. HEENT: Normocephalic, atraumatic. Pupils are equally round and reactive to light. Extraocular movements are intact. No scleral icterus. NECK: Neck circumference is large. The patient is obese. RESPIRATORY: The patient has wheezing bilaterally at the anterior lung martinez and some rales that can be appreciated at the posterior lung martinez. CARDIAC: Positive S1 and S2. Tachycardic. ABDOMEN: Soft, nontender, and nondistended. Positive bowel sounds in all quadrants. Obese abdomen. No peritoneal signs. EXTREMITIES: The patient has 5/5 upper extremity strength and 5/5 lower extremity strength. No edema noted in the upper and lower extremities. The patient has good pulses bilaterally of the upper and lower extremities. NEUROLOGIC: Cranial nerves 2 through 12 grossly intact. No neurologic deficits noted. SKIN: Warm, dry, and intact. PSYCH: Normal affect. Alert and oriented x3. DIAGNOSTIC DATA: CARDIOVASCULAR STUDIES: EKG shows normal sinus rhythm with a rate of 99 and a complete right heart bundle-branch block. LABORATORY RESULTS: WBC 8.8, hemoglobin is 13.7, hematocrit is 40.4, and platelet count is 235. Sodium is 135, potassium is 4.0, chloride is 102, carbon dioxide of 22, anion gap of 17, BUN is 10, creatinine is 0.74, glucose 112, AST 67, ALT of 49. Troponin is less than 0.010. Legionella is negative. Strep is negative. IMAGING STUDIES: Chest x-ray showed patchy new left basilar opacity suspicious for infectious pneumonitis. ASSESSMENT AND PLAN: This is a 58-year-old male being admitted for; 1. Shortness of breath, likely due to community-acquired pneumonia. At this point, we will start the patient on antibiotics. We have sent out cultures. We will follow up with the results. We will follow up on morning labs. We will treat the patient with DuoNeb, Solu-Medrol, and Pulmicort. We have consulted Pulmonology regarding further treatment. We will continue to monitor the patient. 2. Hypertension. We will monitor the patient's blood pressure closely and we will treat accordingly. 3. Hyperlipidemia. We will continue the patient on home medications. 4. Diabetes mellitus type 2. We will continue the patient on insulin sliding scale. We will monitor the patient's blood sugars closely. 5. Restless legs syndrome. We will continue the patient on his home medications. 6. Deep venous thrombosis, gastrointestinal prophylaxis. Job ID: [id number]
[2018-09-16] MEDS: rOPINIRole HCl 1 MG TAB PO SCH (21:58)
[2018-09-16] MEDS: Zolpidem Tartrate 5 MG TAB PO PRN (23:40)
--- NOTE | 2018-09-17 01:57 | CON ---
DATE OF CONSULTATION: 09/16/2018 HISTORY OF PRESENT ILLNESS: Mr. Hines is a 58-year-old male. He presented with symptoms of cough and chest congestion lasting all last week. He was seen in Urgent Care and given a prescription for erythromycin. He said he got worse after this. He says he tried to tell the provider that he used erythromycin in the past with similar symptoms with no improvement (this was still prescribed ). Chest radiograph did not show any infiltrates at the time of visit to urgent care. PAST MEDICAL HISTORY: 1. Remarkable for type 2 diabetes, recently diagnosed. 2. History of obesity. He weighs almost 300 pounds at this time. He said after his divorce, he got down to 165 pounds, but got malnourished, because of his diet. He has eaten 2 turkey sandwiches for breakfast, lunch and dinner and nothing else. 3. He has a history of hypertension as well. 4. History of lipid disorder. PAST SURGICAL HISTORY: Remarkable for: 1. Appendectomy. 2. Hemorrhoidectomy. 3. Cholecystectomy. SOCIAL HISTORY: He is not a smoker or daily drinker. ALLERGIES: HE REPORTS PENICILLIN ALLERGY. MEDICATIONS: Prior to admission he was on; 1. Klonopin for restless legs. 2. Hydrochlorothiazide/metoprolol for his hypertension. 3. Metformin for his diabetes. 4. Pioglitazone. 5. He is on gabapentin and Lexapro. FAMILY HISTORY: Negative for lung disease in early age. REVIEW OF SYSTEMS: 10 point review of systems completed, otherwise negative. He denies hemoptysis. PHYSICAL EXAMINATION: VITAL SIGNS: He is afebrile, heart rate 80, respiratory rate 18, oximetry is 95 % on room air. His significant other says blood pressure 153/81. GENERAL: Sats were in the 80s when he came in. HEENT: Pupils are equal, sclerae is anicteric. NECK: Supple. LUNGS: Clear and distant breath sounds. HEART: Regular rhythm. S1-S2 are normal. No murmurs heard. ABDOMEN: Soft and nontender. EXTREMITIES: Without clubbing, cyanosis, or edema. IMPRESSION: 1. Postviral pneumonia, likely pneumococcus. Did not quickly respond to erythromycin, is now started on IV Levaquin. I would at least give him one dose of IV Rocephin as well. The infiltrate in his left lower lobe is very mild. 2. Given his diabetes, we can probably without using steroids at this time. 3. Hopefully giving routine nebulizer treatments will help him mobilize his secretions. He is on a pediatric dose of Pulmicort, so we will increase his dose. This is a 70 minute consult, with greater than 50% of time spent on unit coordinating care. Job ID: [id number] [facility]TD[facility]
[2018-09-17 05:46] LABS: #Lymphocytes 1.4 thou/uL (1.20-3.40); #Monocytes 0.3 thou/uL (0.11-0.59); #Neutrophils 13.8 thou/uL (1.40-6.50); %Eosinophils 0.2 % (0.0-10.0); %Neutrophils 88.8 % (42.0-75.0); Hemoglobin 12.6 g/dL (14.0-18.0); Mean Corpuscular HGB CONC 33.5 g/dL (32.0-36.0); Mean Corpuscular Volume 89.6 fL (78.0-98.0); Mean Platelet Volume 6.7 fL (7.4-10.4); Platelet Count 262 thou/uL (130-400); RBC Distribution Width 14.7 % (11.5-14.5); Red Blood Cell (RBC) Count 4.19 mill/uL (4.70-6.10); White Blood Cell (WBC) Count 15.5 thou/uL (4.8-10.8)
[2018-09-17 06:14] LABS: ALT (SGPT) 34 U/L (8-55); AST (SGOT) 47 U/L (5-34); Albumin 3.8 g/dL (3.5-5.0); Alkaline Phosphatase 92 U/L (40-150); Anion Gap 16 mmol/L (10-20); BUN (Urea Nitrogen) 16 mg/dL (8.4-25.7); Bilirubin, Total 0.5 mg/dL (0.2-1.2); Calc. Creatinine Clearance 203 mL/min (70-130); Calcium 9.4 mg/dL (7.8-10.44); Carbon Dioxide 22 mmol/L (22-29); Chloride 102 mmol/L (98-107); Estimated GFR-MDRD Greater than 90; Globulin 4.2 g/dL (2.4-3.5); Glucose 242 mg/dL (70-105); Potassium 4.7 mmol/L (3.5-5.1); Sodium 135 mmol/L (136-145)
[2018-09-17] MEDS: HumaLOG 300 UNITS/3 ML VIAL SC PRN ×4 (06:21→22:53)
[2018-09-17] MEDS: Budesonide 0.5 MG/2 ML NEB NEB SCH ×2 (07:33→20:08)
--- NOTE | 2018-09-17 09:28 | PDOC.PN ---
- Subjective Encounter Start Date: 09/17/18 Encounter Start Time: 09:25 Subjective: Patient feeling slightly better. Continues with occasional coughing fits. -: No fevers. Denies any hemoptysis. No chest pain. Slightly sore but improved -: Eating/drinking. No n/v. No abdo pain. Moving bowels. No urinary symptoms. - Objective Resuscitation Status - Order Detail: 09/16/18 05:46 Resuscitation Status Routine Resuscitation Status: FULL: Full Resuscitation Vital Signs & Weight: Vital Signs (12 hours) Temp Pulse Resp BP Pulse Ox 09/17/18 07:38 77 12 95 09/17/18 07:33 77 12 95 09/17/18 07:19 97.7 F 82 18 142/80 H 95 09/17/18 04:05 97.9 F 81 22 H 162/73 H 97 09/16/18 23:31 97.9 F 79 16 129/58 L 94 L 09/16/18 22:08 12 Weight Weight 299 lb 1.6 oz I&O: 09/16/18 09/17/18 09/18/18 06:59 06:59 06:59 Intake Total 200 1780 Output Total 425 1575 Balance -225 205 Result Diagrams: 09/17/18 05:04 09/17/18 05:04 Additional Labs: Accuchecks 09/17/18 09/16/18 09/16/18 06:16 20:42 16:58 POC Glucose 231 H 300 H 322 H 09/16/18 10:26 POC Glucose 220 H Phys Exam - Physical Examination Constitutional: NAD HEENT: PERRLA, moist MMs, oral pharynx no lesions Neck: supple, full ROM Scattered expiratory wheezing, more prominent in Left lung Cardiovascular: RRR Gastrointestinal: soft, non-tender, no distention, positive bowel sounds Musculoskeletal: no edema, pulses present Neurological: non-focal, normal sensation, moves all 4 limbs Psychiatric: normal affect, A&O x 3 Skin: no rash, normal turgor Dx/Plan (1) Pneumonia Code(s): J18.9 - PNEUMONIA, UNSPECIFIED ORGANISM Status: Acute Qualifiers: Lung location: lower lobe of lung (2) DM type 2 (diabetes mellitus, type 2) Status: Chronic Qualifiers: Diabetes mellitus skilled nursing insulin use: without keno terminal operator use Diabetes mellitus complication status: with unspecified complications Qualified Code(s) : E11.8 - Type 2 diabetes mellitus with unspecified complications (3) Dyslipidemia Code(s): E78.5 - HYPERLIPIDEMIA, UNSPECIFIED Status: Chronic (4) HTN (hypertension) Code(s): I10 - ESSENTIAL (PRIMARY) HYPERTENSION Status: Chronic Qualifiers: Hypertension type: essential hypertension Qualified Code(s): I10 - Essential (primary) hypertension (5) Obesity Code(s): E66.9 - OBESITY, UNSPECIFIED Status: Chronic Qualifiers: Obesity classification: adult class 3 (BMI >= 40) Body mass index: BMI 40.0 -44.9 - Plan cont current plan of care, continue antibiotics, out of bed/ambulate Cough improving, continue Guiafenesin and Tessalon, Continue nebs. -: Leukocytosis likely due to steroids, remains afebrile -: Monitor glucose, hyperglycemia due to steroids. -: Further management/disposition as per pulmonary team. -: Discussed with Dr. Kingston who agrees with plan as above. * .
[2018-09-17] MEDS: Gabapentin 100 MG CAP PO SCH ×2 (10:21→20:39)
[2018-09-17] MEDS: Benzonatate 100 MG CAP PO SCH ×3 (10:21→20:38)
[2018-09-17] MEDS: Famotidine 20 MG TAB PO SCH (10:22)
[2018-09-17] MEDS: Metoprolol Tartrate 100 MG TAB PO SCH (10:22)
[2018-09-17] MEDS: guaiFENesin ER 600 MG TAB PO SCH ×2 (10:22→20:39)
[2018-09-17] MEDS: Hydrochlorothiazide 25 MG TAB PO SCH (10:22)
[2018-09-17] MEDS: Enoxaparin Sodium 40 MG/0.4 ML SYRINGE SC SCH (10:23)
[2018-09-17] MEDS: Pioglitazone HCl 15 MG TAB PO SCH (10:23)
[2018-09-17] MEDS: Escitalopram Oxalate 10 mg Tablet PO SCH (10:23)
--- NOTE | 2018-09-17 10:53 | PRG ---
DATE OF SERVICE: 09/17/2018 SUBJECTIVE: Ian Hines says he feels a little bit better, but not anywhere near his baseline. OBJECTIVE: VITAL SIGNS: He is afebrile. Heart rates respiratory rates in the teens to low 20s, oximetry is 95% on room air, and blood pressure 142/80. LUNGS: Clear. HEART: Regular rate and rhythm. ABDOMEN: Soft. IMPRESSION: Community-acquired pneumonia. PLAN: Continue antimicrobials intravenously for 1 more day, and then hopefully, discharge him in the morning. Job ID: [id number]
[2018-09-17] MEDS: rOPINIRole HCl 1 MG TAB PO SCH (20:38)
[2018-09-17] MEDS: Rosuvastatin 10 MG TAB PO SCH (20:38)
[2018-09-17] MEDS: Zolpidem Tartrate 5 MG TAB PO PRN (20:39)
[2018-09-17] MEDS: cefTRIAXone\\ROCEPHIN 2 GM in Sodium Chloride 0.9% 100 ML IVPB SCH (20:46)
[2018-09-18 05:47] LABS: #Eosinphils 0.1 thou/uL (0.0-0.7); #Lymphocytes 1.8 thou/uL (1.20-3.40); #Monocytes 0.5 thou/uL (0.11-0.59); #Neutrophils 17.1 thou/uL (1.40-6.50); %Basophils 0.2 % (0.0-1.0); %Eosinophils 0.3 % (0.0-10.0); %Lymphocytes 9.1 % (21.0-51.0); %Monocytes 2.5 % (0.0-10.0); %Neutrophils 87.9 % (42.0-75.0); Hemoglobin 13.3 g/dL (14.0-18.0); Mean Corpuscular HGB CONC 33.2 g/dL (32.0-36.0); Mean Corpuscular Hemoglobin 29.6 pg (27.0-31.0); Mean Corpuscular Volume 89.1 fL (78.0-98.0); Mean Platelet Volume 6.7 fL (7.4-10.4); Platelet Count 290 thou/uL (130-400); RBC Distribution Width 14.8 % (11.5-14.5); Red Blood Cell (RBC) Count 4.48 mill/uL (4.70-6.10); White Blood Cell (WBC) Count 19.4 thou/uL (4.8-10.8)
[2018-09-18 06:02] LABS: ALT (SGPT) 32 U/L (8-55); AST (SGOT) 36 U/L (5-34); Alkaline Phosphatase 88 U/L (40-150); Anion Gap 18 mmol/L (10-20); BUN (Urea Nitrogen) 21 mg/dL (8.4-25.7); Bilirubin, Total 0.5 mg/dL (0.2-1.2); Calc. Creatinine Clearance 200 mL/min (70-130); Calcium 9.7 mg/dL (7.8-10.44); Carbon Dioxide 23 mmol/L (22-29); Chloride 99 mmol/L (98-107); Estimated GFR-MDRD Greater than 90; Globulin 3.9 g/dL (2.4-3.5); Glucose 256 mg/dL (70-105); Potassium 4.6 mmol/L (3.5-5.1); Protein, Total 7.9 g/dL (6.0-8.3); Sodium 135 mmol/L (136-145)
[2018-09-18] MEDS: Budesonide 0.5 MG/2 ML NEB NEB SCH ×2 (06:15→18:37)
[2018-09-18] MEDS: HumaLOG 300 UNITS/3 ML VIAL SC PRN ×4 (06:26→20:59)
[2018-09-18] MEDS: Enoxaparin Sodium 40 MG/0.4 ML SYRINGE SC SCH (08:50)
[2018-09-18] MEDS: Gabapentin 100 MG CAP PO SCH ×2 (08:51→20:21)
[2018-09-18] MEDS: guaiFENesin ER 600 MG TAB PO SCH ×2 (08:51→20:21)
[2018-09-18] MEDS: Pioglitazone HCl 15 MG TAB PO SCH (08:51)
[2018-09-18] MEDS: Escitalopram Oxalate 10 mg Tablet PO SCH (08:51)
[2018-09-18] MEDS: Benzonatate 100 MG CAP PO SCH ×3 (08:52→20:22)
[2018-09-18] MEDS: Hydrochlorothiazide 25 MG TAB PO SCH (08:52)
[2018-09-18] MEDS: Metoprolol Tartrate 100 MG TAB PO SCH (08:53)
--- NOTE | 2018-09-18 10:26 | PDOC.PN ---
- Subjective Encounter Start Date: 09/18/18 Encounter Start Time: 09:24 Subjective: Continues with chesty cough and coughing fits. Low sats early hrs. Improved -: Eating/drinking. No n/v. No chest pain. Ambulating. No hemoptysis. -: Denies any lower leg swelling. No urinary symptoms or bowel changes. - Objective Resuscitation Status - Order Detail: 09/16/18 05:46 Resuscitation Status Routine Resuscitation Status: FULL: Full Resuscitation Vital Signs & Weight: Vital Signs (12 hours) Temp Pulse Resp BP Pulse Ox 09/18/18 07:16 97.6 F 94 24 H 171/105 H 94 L 09/18/18 06:17 80 18 93 L 09/18/18 06:15 80 18 93 L 09/18/18 04:56 97.4 F L 75 13 165/74 H 92 L Weight Weight 299 lb 1.6 oz I&O: 09/17/18 09/18/18 09/19/18 06:59 06:59 06:59 Intake Total 1780 732 340 Output Total 1575 400 Balance 205 332 340 Result Diagrams: 09/18/18 05:07 09/18/18 05:07 Additional Labs: Accuchecks 09/18/18 09/17/18 09/17/18 06:05 20:25 17:02 POC Glucose 245 H 279 H 269 H 09/17/18 10:53 POC Glucose 238 H Phys Exam - Physical Examination Constitutional: NAD HEENT: PERRLA Neck: supple, full ROM Respiratory: wheezing present Scattered expiratory mild expiratory wheezing on left side. Improved. No crackles. Cardiovascular: RRR Gastrointestinal: soft, non-tender, no distention obese Musculoskeletal: no edema, pulses present Neurological: non-focal, normal sensation, moves all 4 limbs Psychiatric: normal affect, A&O x 3 Skin: no rash Dx/Plan (1) Pneumonia Code(s): J18.9 - PNEUMONIA, UNSPECIFIED ORGANISM Status: Acute Qualifiers: Lung location: lower lobe of lung (2) DM type 2 (diabetes mellitus, type 2) Status: Chronic Qualifiers: Diabetes mellitus correction insulin use: without roasterman use Diabetes mellitus complication status: with unspecified complications Qualified Code(s) : E11.8 - Type 2 diabetes mellitus with unspecified complications (3) Dyslipidemia Code(s): E78.5 - HYPERLIPIDEMIA, UNSPECIFIED Status: Chronic (4) HTN (hypertension) Code(s): I10 - ESSENTIAL (PRIMARY) HYPERTENSION Status: Chronic Qualifiers: Hypertension type: essential hypertension Qualified Code(s): I10 - Essential (primary) hypertension (5) Obesity Code(s): E66.9 - OBESITY, UNSPECIFIED Status: Chronic Qualifiers: Obesity classification: adult class 3 (BMI >= 40) Body mass index: BMI 40.0 -44.9 - Plan cont current plan of care, continue antibiotics, out of bed/ambulate Continue Mucinex, Tessalone, and encourage water intake. Continue nebs -: On steroids, WCC steadily rising. Minimal symptomatic improvement. -: Prelim Resp Cx: Mod gram+ cocci in clusters, few gram+ cocci and gram- rods -: Awaiting sensitivity results. -: Await input from Pulmonary Team (Dr. Al). Seen with Dr. Frey who agrees with plan as above.
--- NOTE | 2018-09-18 17:16 | PRG ---
DATE OF SERVICE: 09/18/2018 SUBJECTIVE: Mr. Hines said he is still and feels like he is ready to go home. He has not had any fever. OBJECTIVE: VITAL SIGNS: Heart rate 71, respiratory rate 20, oximetry is 92% on room air, and blood pressure 142/66. GENERAL: He probably needs to get up to walk around more. LUNGS: Clear. HEART: Regular rate and rhythm. ABDOMEN: Soft. LABORATORY DATA: White count 19.4, hemoglobin 13.3, and platelets 290,000. Sodium 135, potassium 4.6, chloride 99, bicarb 23, BUN 29, and creatinine 0.79. IMPRESSION: 1. Pneumonia, community acquired, failed outpatient therapy. 2. Obesity. 3. ? sleep apnea. PLAN: More Rocephin and Levaquin today and then, he thinks he will be ready to go home early in the morning. Job ID: [id number]
--- NOTE | 2018-09-18 17:33 | PDOC.EVN ---
Event Note - Event Note Event Note: Chart reviewed. Pt seen with Cheri Josue. Pt denies chest pain or shortness of breath, reports ongoing cough. VSS. S1, S2, reg. Occ exp wheese Active issues: 1. pneumonia Agree with assessment and plan as documented by Ms. Josue.
[2018-09-18] MEDS: cefTRIAXone\\ROCEPHIN 2 GM in Sodium Chloride 0.9% 100 ML IVPB SCH (20:20)
[2018-09-18] MEDS: Zolpidem Tartrate 5 MG TAB PO PRN (20:21)
[2018-09-18] MEDS: Rosuvastatin 10 MG TAB PO SCH (20:21)
[2018-09-18] MEDS: rOPINIRole HCl 1 MG TAB PO SCH (20:21)
[2018-09-19 00:09] LABS: Mycoplasma pneumoniae IgG AB 215 U/mL (0-99); Mycoplasma pneumoniae IgM AB Less than 770 U/mL (0-769)
[2018-09-19 04:52] LABS: #Eosinphils 0.1 thou/uL (0.0-0.7); #Lymphocytes 1.6 thou/uL (1.20-3.40); #Monocytes 0.6 thou/uL (0.11-0.59); #Neutrophils 15.5 thou/uL (1.40-6.50); %Basophils 0.1 % (0.0-1.0); %Eosinophils 0.5 % (0.0-10.0); %Monocytes 3.1 % (0.0-10.0); %Neutrophils 87.4 % (42.0-75.0); Mean Corpuscular HGB CONC 33.8 g/dL (32.0-36.0); Mean Corpuscular Volume 88.7 fL (78.0-98.0); Mean Platelet Volume 6.7 fL (7.4-10.4); Platelet Count 271 thou/uL (130-400); RBC Distribution Width 14.6 % (11.5-14.5); Red Blood Cell (RBC) Count 4.34 mill/uL (4.70-6.10); White Blood Cell (WBC) Count 17.8 thou/uL (4.8-10.8)
[2018-09-19 05:14] LABS: Anion Gap 17 mmol/L (10-20); BUN (Urea Nitrogen) 22 mg/dL (8.4-25.7); Calc. Creatinine Clearance 183 mL/min (70-130); Calcium 9.2 mg/dL (7.8-10.44); Carbon Dioxide 20 mmol/L (22-29); Chloride 98 mmol/L (98-107); Estimated GFR-MDRD Greater than 90; Glucose 365 mg/dL (70-105); Potassium 4.2 mmol/L (3.5-5.1); Sodium 131 mmol/L (136-145)
[2018-09-19] MEDS ORDERED: HumaLOG 300 UNITS/3 ML VIAL SC PRN (05:55)
[2018-09-19] MEDS: Budesonide 0.5 MG/2 ML NEB NEB SCH (07:04)
[2018-09-19] MEDS: Gabapentin 100 MG CAP PO SCH (07:55)
[2018-09-19] MEDS: Benzonatate 100 MG CAP PO SCH (07:55)
[2018-09-19] MEDS: guaiFENesin ER 600 MG TAB PO SCH (07:55)
[2018-09-19] MEDS: Enoxaparin Sodium 40 MG/0.4 ML SYRINGE SC SCH (07:55)
[2018-09-19] MEDS: Pioglitazone HCl 15 MG TAB PO SCH (07:56)
[2018-09-19] MEDS: Hydrochlorothiazide 25 MG TAB PO SCH (07:56)
[2018-09-19] MEDS: Metoprolol Tartrate 100 MG TAB PO SCH (07:56)
[2018-09-19] MEDS: Escitalopram Oxalate 10 mg Tablet PO SCH (07:56)
[2018-09-19 08:08] VITALS: BP 143/83; TEMP 97.9
--- NOTE | 2018-09-19 10:19 | PRG ---
DATE OF SERVICE: 09/19/2018 SUBJECTIVE: Ian Hines did well overnight. He has been hyperglycemic. I have stopped his steroids. He really need these. OBJECTIVE: VITAL SIGNS: He is afebrile. Heart rate is 80, respiratory rate 16 , oximetry 95 on room air, blood pressure 143/83. LUNGS: Clear. IMPRESSION: Community-acquired pneumonia, failed therapy with erythromycin. PLAN: Levaquin 750 mg for another week p.o. I have written a prescription for this. He will follow up with me in 3 to 4 weeks for a chest radiograph to document clearing of his infiltrates. I have given him my phone number. Job ID: [id number] [facility]
--- NOTE | 2018-09-19 17:56 | PDOC.EVN ---
Event Note - Event Note Event Note: Chart reviewed. Pt seen. Pt denies chest pain. Cough better S1, S2 Lungs CTA A/P: 1. COPD exacerbation: Improved.
--- NOTE | 2018-09-21 13:47 | EKG ---
Test Reason : Blood Pressure : / mmHG Vent. Rate : 099 BPM Atrial Rate : 099 BPM P-R Int : 174 ms QRS Dur : 144 ms QT Int : 376 ms P-R-T Axes : 038 -41 028 degrees QTc Int : 482 ms Normal sinus rhythm Left axis deviation Right bundle branch block Abnormal ECG Left axis deviation Left Anterior Fascicular Block Confirmed by SHARONA BARBA MD ([id number]), video news editor DUNG COLEY ([id number]) on 09/21/2018 1:46:35 PM Referred By: Confirmed By:SHARONA BARBA MD
--- NOTE | 2018-09-22 19:36 | DIS ---
DATE OF ADMISSION: 09/15/2018 DATE OF DISCHARGE: 09/19/2018 CONSULTING PHYSICIAN: Dr. Al, Pulmonary Medicine. DIAGNOSES: 1. Community-acquired pneumonia. 2. Diabetes mellitus, type 2. 3. Morbid obesity. HOSPITAL COURSE: Mr. Hines is a 58-year-old man, who initially presented with a persistent cough and shortness of breath for 4 days. He was having significant coughing fits resulting in vomiting due to excess force. The patient had also been experiencing tightness in his chest with wheezing. He was seen at an urgent care and prescribed azithromycin with no improvement. During his hospital stay, the patient did receive IV antibiotics with Rocephin and Levaquin. He continued scheduled nebulizer treatments and was prescribed Tessalon as well as Mucinex to help with his cough. The patient underwent a chest x-ray on initial presentation that showed patchy new left basilar opacity suspicious for infectious pneumonitis. He was followed by Dr. Al of Pulmonary Medicine throughout his hospital stay. Sputum cultures were obtained. It was felt his pneumonia was likely pneumococcus. He recommended Pulmicort. The patient had very slow improvement throughout his hospital stay, and on the day of discharge, was finally feeling significantly better. Though he continued with coughing fits, he had no further episodes of vomiting, and the coughing fits were mild compared to when he first came in. Due to being placed on IV steroids, he did have leukocytosis during his hospitalization as well as an elevated glucose. It was recommended by Dr. Al that he discontinue steroids on day of discharge. REVIEW OF SYSTEMS: The patient is feeling significantly better on day of discharge and his cough is much improved. He states his cough is now dry. Denies having any fevers, chills, or sweats. No headaches or dizziness. Denies any chest pain or palpitations. No abdominal pain. Has been tolerating a regular diet. Denies any nausea or vomiting. No urinary symptoms or issues with constipation/diarrhea. All other review of systems are negative. PHYSICAL EXAMINATION: GENERAL: The patient appears well developed and well nourished and in no acute distress. VITAL SIGNS: Temperature 97.9, pulse 80, respirations 16, O2 saturation 95% on room air, and blood pressure 143/83. HEENT: Normocephalic and atraumatic. Pupils equal, round, and reactive to light. Sclerae without icterus. Oropharynx is clear. NECK: Supple without lymphadenopathy. LUNGS: Clear to auscultation bilaterally without wheezes, rales, or rhonchi. CARDIAC: Regular rate and rhythm without audible murmurs, rubs, or gallops. ABDOMEN: Soft, nontender, and nondistended with bowel sounds present. EXTREMITIES: No clubbing, cyanosis, or edema. NEUROLOGIC: Alert and oriented x3. SKIN: Without rash or jaundice. LABORATORY DATA: White blood count 17.8 (attributed to steroids), hemoglobin 13, hematocrit 38.5, platelets 271. Sodium 131, potassium 4.2, BUN 22, creatinine 0.85, GFR greater than 90, and glucose is 365. IMAGING DATA: Chest x-ray, 09/15/2018. Patchy new left basilar opacity suspicious for infectious pneumonitis. PROCEDURES: None. DISCHARGE MEDICATIONS: 1. Prescription provided for Levaquin x7 days, provided by Dr. Al. 2. I provided a prescription for Tessalon 200 mg p.o. t.i.d. 3. I provided a prescription for Mucinex 1200 mg p.o. q.12 hours. CONDITION AT DISCHARGE: Stable. ACTIVITY: As tolerated. DIET: Heart healthy and diabetic diet. FOLLOWUP: The patient will follow up with his primary care physician in one week. DISPOSITION: Cleared for discharge home on 09/19/2018. The patient's case was discussed with Dr. Frey, who agrees with the plan of care as described above. Job ID: [id number]
== END 2018-09-19 10:14 | disposition home or self-care (01) | DRG 194 ==
LOC: ERS 14:18 → ERHOLD 18:22 → 2SW 18:23
PROVIDERS: ADMIT Family Medicine; ATTEND Family Medicine
DX: J13 Pneumonia due to Streptococcus pneumoniae (principal); Z68.41 Body mass index [BMI] 40.0-44.9, adult; E66.01 Morbid (severe) obesity due to excess calories; I10 Essential (primary) hypertension; E11.9 Type 2 diabetes mellitus without complications; E78.5 Hyperlipidemia, unspecified; G25.81 Restless legs syndrome; F41.9 Anxiety disorder, unspecified; F43.10 Post-traumatic stress disorder, unspecified; Z88.0 Allergy status to penicillin; Z79.84 Long term (current) use of oral hypoglycemic drugs; Z79.899 Other long term (current) drug therapy
CPT/HCPCS: 36415; 36416; 71045; 80048; 80053; 84484; 85025; 87040; 87070; 87205; 87899; 93005; 94640; 94760; 96361; 96365; 96366; 96375; J0456; J0696; J1100; J1650; J1885; J1956; J2920; J7050; J7620; J7626

== ENCOUNTER 2019-03-12 18:33 | Observation (INO) | payer OTHER ==
[2019-03-12] MEDS ORDERED: Meclizine HCl 25 MG TAB ONE (18:57)
[2019-03-12 19:21] LABS: #Eosinphils 0.3 thou/uL (0.0-0.7); #Lymphocytes 2.3 thou/uL (1.20-3.40); #Monocytes 0.7 thou/uL (0.11-0.59); #Neutrophils 8.1 thou/uL (1.40-6.50); %Basophils 0.2 % (0.0-1.0); %Eosinophils 2.5 % (0.0-10.0); %Lymphocytes 20.5 % (21.0-51.0); %Monocytes 5.8 % (0.0-10.0); %Neutrophils 71.1 % (42.0-75.0); Hemoglobin 12.2 g/dL (14.0-18.0); Mean Corpuscular HGB CONC 31.9 g/dL (32.0-36.0); Mean Corpuscular Hemoglobin 28.9 pg (27.0-31.0); Mean Corpuscular Volume 90.4 fL (78.0-98.0); Mean Platelet Volume 6.9 fL (7.4-10.4); Platelet Count 236 thou/uL (130-400); RBC Distribution Width 15.1 % (11.5-14.5); Red Blood Cell (RBC) Count 4.23 mill/uL (4.70-6.10); White Blood Cell (WBC) Count 11.4 thou/uL (4.8-10.8)
--- NOTE | 2019-03-12 19:29 | CT ---
CT BRAIN WITHOUT CONTRAST: 03/12/19 HISTORY: Dizziness. COMPARISON: 04/06/17. There is a questionable focal area of decreased attenuation in the left temporal lobe. No acute hemor rhage, midline shift, or abnormal extra-axial fluid collections are seen. The ventricular size is nor mal and the basilar cisterns patent. The bony calvarium is intact. The visualized paranasal sinuses and mastoid air cells are well aerated. IMPRESSION: Questionable focal area of hypodensity in the left temporal lobe. Possibility for mass cannot be comp letely excluded. Further evaluation with MRI (with and without IV contrast) is recommended. POS: [facility]
[2019-03-12 19:43] LABS: ALT (SGPT) 29 U/L (8-55); AST (SGOT) 49 U/L (5-34); Albumin 4.1 g/dL (3.5-5.0); Alkaline Phosphatase 106 U/L (40-150); Anion Gap 12 mmol/L (10-20); BUN (Urea Nitrogen) 15 mg/dL (8.4-25.7); Bilirubin, Total 0.8 mg/dL (0.2-1.2); Calc. Creatinine Clearance 0 mL/min (70-130); Carbon Dioxide 28 mmol/L (22-29); Chloride 101 mmol/L (98-107); Estimated GFR-MDRD Greater than 90; Globulin 3.4 g/dL (2.4-3.5); Glucose 156 mg/dL (70-105); Potassium 4.2 mmol/L (3.5-5.1); Protein, Total 7.5 g/dL (6.0-8.3); Sodium 137 mmol/L (136-145)
--- NOTE | 2019-03-12 19:52 | ULT ---
VENOUS DOPPLER ULTRASOUND OF THE LEFT LOWER EXTREMITY: 03/12/19 HISTORY: Left lower extremity edema. TECHNIQUE: Siddiqui scale ultrasound with color flow and spectral Doppler imaging of the deep venous system of the l eft lower extremity was performed. FINDINGS: There is good flow, compression, and augmentation noted in the left common femoral, femoral, deep fem oral, popliteal, posterior tibial, peroneal, and greater saphenous veins. IMPRESSION: No evidence of DVT in the left lower extremity. POS: [facility]
[2019-03-12] MEDS ORDERED: Diazepam 5 MG TAB ONE (20:25)
[2019-03-12] MEDS ORDERED: Ondansetron PF 4 MG/2 ML Vial IVP PRN (21:48)
[2019-03-12] MEDS ORDERED: Acetaminophen 325 MG TAB PO PRN (21:48)
[2019-03-12] MEDS ORDERED: Ondansetron ODT 4 MG TAB SL PRN (21:48)
[2019-03-12] MEDS ORDERED: Gabapentin 100 MG CAP PO SCH (23:30)
[2019-03-12] MEDS ORDERED: rOPINIRole HCl 1 MG TAB PO SCH (23:30)
[2019-03-12] MEDS ORDERED: Metoprolol Tartrate 100 MG TAB PO SCH (23:45)
[2019-03-13] MEDS: Pioglitazone HCl 15 MG TAB PO SCH (09:09)
[2019-03-13] MEDS: Hydrochlorothiazide 25 MG TAB PO SCH (09:09)
[2019-03-13] MEDS: Gabapentin 100 MG CAP PO SCH ×2 (09:09→21:26)
[2019-03-13] MEDS: Metoprolol Tartrate 100 MG TAB PO SCH (09:10)
[2019-03-13] MEDS ORDERED: Gadobenate Dimeglumine 529 MG/1 ML (20ML VIAL) ONE (11:39)
[2019-03-13] MEDS ORDERED: Guaifenesin DM 100-10/5 ML UDCUP PO PRN (12:03)
[2019-03-13] MEDS ORDERED: Dextrose 50% Abboject 50 ML SYRINGE SLOW IVP PRN (12:03)
[2019-03-13] MEDS ORDERED: Ondansetron PF 4 MG/2 ML Vial IVP PRN (12:03)
[2019-03-13] MEDS ORDERED: Bisacodyl 10 MG SUPP PR PRN (12:03)
[2019-03-13] MEDS ORDERED: Dextrose 5% in Water 1,000 ML IV PRN (12:03)
[2019-03-13] MEDS ORDERED: HumaLOG 300 UNITS/3 ML VIAL SC PRN ×2 (12:03)
[2019-03-13] MEDS ORDERED: Senokot S 8.6-50 MG TAB PO PRN (12:03)
[2019-03-13] MEDS ORDERED: Acetaminophen 325 MG TAB PO PRN (12:03)
--- NOTE | 2019-03-13 12:55 | HP ---
REASON FOR ADMISSION: Dizziness, questionable left temporal lobe mass. HISTORY OF PRESENTING ILLNESS: The patient gives history of sitting in a recliner yesterday and was trying to lean back and was feeling very dizzy on the chair. He also tried to sit up and the dizziness was even worse. He checked his blood pressures. His systolic blood pressure was 175. He called his and the patient managed to stay at home for another 2 to 3 hours to see if it goes away. Finally, as this did not relent, he made it to the emergency room. He has had some visual disturbances for last 6 months or so. Questionable tinnitus in the left ear. The patient has had benign positional vertigo and has had Carmen procedure done 10 years back, which resolved his dizziness. He has also developed left lower extremity swelling off and on from last one week and it is actually getting better from last 2 days. He has had trouble to walk because it hurts. The ultrasound done here shows no evidence of DVT. No prior history of stroke. The at bedside also mentions that he has been more on the edge and grumpy from last 2 weeks and is also more sleepy or lethargic for a month now. No cough or expectoration. No fever. PAST MEDICAL AND SURGICAL HISTORY: Obesity; diabetes mellitus, type 2; dyslipidemia; restless legs syndrome; colonoscopy done three years back showed diverticulosis with polyps; prior history of benign positional vertigo with Carmen procedure done more than 10 years back; cholecystectomy; appendectomy; hemorrhoidectomy; ablation done previously for questionable PVCs/SVT; prior stress test 4 or 5 years back, which was normal; history of anxiety; PTSD. CURRENT MEDICATIONS: 1. Albuterol inhaler q.4 hourly p.r.n. 2. Lexapro 10 mg p.o. daily. 3. Gabapentin 200 mg p.o. twice daily. 4. Mucinex 1200 mg p.o. twice daily p.r.n. 5. Hydrochlorothiazide 12.5 mg p.o. q.a.m. 6. Prevacid 30 mg p.o. daily. 7. Metformin 1000 mg p.o. twice daily. 8. Metoprolol tartrate 100 mg daily. 9. Actos 30 mg daily. 10. Ropinirole 1 mg p.o. q.p.m. 11. Crestor 10 mg p.o. at bedtime. 12. Tessalon 200 mg p.o. three times daily p.r.n. ALLERGIES: ALLERGIC TO PENICILLIN. PERSONAL HISTORY: Does not abuse alcohol or drugs. No history of smoking. Lives with his . They are for nearly 25 years. FAMILY HISTORY: Both parents in their 80s, both had diabetes and coronary artery disease. The patient ambulates by himself. CODE STATUS: Full. RIOS is his . REVIEW OF SYSTEMS: CONSTITUTIONAL: Negative for weight loss or gain, ability to conduct usual activities. SKIN: Negative for rash, itching. EYES: Negative for double vision, pain. ENT/MOUTH: Negative for nose bleeding, neck stiffness, pain, tenderness. CARDIOVASCULAR: Negative for palpitations, dyspnea on exertion, orthopnea. RESPIRATORY: Negative for shortness of breath, wheezing, cough, hemoptysis, fever or night sweats. GASTROINTESTINAL: Negative for poor appetite, abdominal pain, heartburn, nausea , vomiting, constipation, or diarrhea. GENITOURINARY: Negative for urgency, frequency, dysuria, nocturia. MUSCULOSKELETAL: Negative for pain, swelling. NEUROLOGIC/PSYCHIATRIC: Negative for anxiety, depression. ALLERGY/IMMUNOLOGIC: Negative for skin rash, bleeding tendency. PHYSICAL EXAMINATION: GENERAL: The patient is a 58-year-old male, who is currently not in any acute distress. VITAL SIGNS: Blood pressure 196/106, pulse 96 per minute, respiratory rate 20 per minute, temperature 98.8 degrees Fahrenheit, and saturating 93% on room air. NECK: Supple. No elevated JVD. HEENT: Eyes; extraocular muscles are intact. Pupils are reacting to light. Oral cavity; mucous membranes are moist, no exudates or congestion. CARDIOVASCULAR: S1 and S2 heard, regular rhythm. RESPIRATORY: Air entry 1+ bilateral. No rales or rhonchi. ABDOMEN: Soft. Bowel sounds heard. No tenderness, rigidity, or guarding. EXTREMITIES: No peripheral edema or calf tenderness. VASCULAR: Peripheral pulses 1+ bilateral. No ischemic ulcerations or gangrene. CENTRAL NERVOUS SYSTEM: Cranial nerves are grossly intact. Motor system, strength is 5/5 in all 4 extremities. Reflexes are 2+ bilateral. Babinski is downgoing. The patient is right-handed. Gait was not tested. PSYCHIATRIC: The patient's mood is euthymic. No hallucinations or delusions. LABORATORY DATA: White count of 11, hemoglobin and hematocrit are 12 and 38, platelet count 236, MCV is 90, with 71% neutrophils. Electrolytes stable. BUN 15, creatinine 0.7, serum glucose 156, AST 49, ALT 29, alkaline phosphatase 106. Troponin-I is negative. Albumin is 4.1. A CT brain without contrast done shows questionable focal area of hypodensity in the left temporal lobe. Possibility for mass cannot be completely excluded. The left lower extremity ultrasound venous Doppler done shows no evidence of DVT. EKG done shows normal sinus rhythm at 96 beats per minute. There is poor R-wave progression with RBBB seen. CLINICAL IMPRESSION AND PLAN: The patient will be under observation on medical floor for severe dizziness with questionable mass in the left temporal lobe. He has also had prior history of benign positional vertigo. MRI with and without contrast has been done and we will await the results of the same. Clinically, the patient has no neurologic deficit that I can ascertain at present. He has had visual and hearing changes from last 6 to 7 months. We will continue his gabapentin, hydrochlorothiazide, metoprolol tartrate, ropinirole, Crestor, albuterol inhaler as before. We will hold his metformin for now. Further workup will be based on MRI results. PT and OT evaluations will be requested. If the MRI is negative, the patient likely will be referred for [facility] to help with Carmen maneuver, which has helped him 10 years back. We will continue to closely monitor him on medical floor. I have given complete updates to the patient and his at bedside. Job ID: [id number] MTDD
[2019-03-13] MEDS: Sodium Chloride 0.9% 1,000 ML IV SCH ×2 (14:00→21:28)
--- NOTE | 2019-03-13 14:12 | MRI ---
MRI BRAIN WITH AND WITHOUT CONTRAST: INDICATION: Followup CT brain 03/12/2019 which questioned a hypodensity in the left temporal lobe. FINDINGS: Ventricles have normal size and position. There is no evidence of restricted diffusion. No mass or edema. No significant white matter abnormality. No abnormal signal is seen in the left temporal lob e. CT findings appear artifactual. 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 IMPRESSION: Unremarkable MRI brain. No acute abnormality. POS: [facility]
[2019-03-13] MEDS ORDERED: PROVENTIL INHALER 6.7 G (200 INHALATIONS) INH PRN (14:30)
[2019-03-13] MEDS ORDERED: rOPINIRole HCl 1 MG TAB PO SCH (21:00)
[2019-03-13] MEDS ORDERED: Rosuvastatin 10 MG TAB PO SCH (21:00)
[2019-03-13] MEDS: Famotidine 20 MG TAB PO SCH (21:27)
[2019-03-14 04:16] LABS: #Eosinphils 0.4 thou/uL (0.0-0.7); #Lymphocytes 2.3 thou/uL (1.20-3.40); #Monocytes 0.5 thou/uL (0.11-0.59); #Neutrophils 6.1 thou/uL (1.40-6.50); %Basophils 0.3 % (0.0-1.0); %Lymphocytes 24.5 % (21.0-51.0); %Monocytes 5.4 % (0.0-10.0); %Neutrophils 65.8 % (42.0-75.0); Hemoglobin 11.8 g/dL (14.0-18.0); Mean Corpuscular HGB CONC 31.8 g/dL (32.0-36.0); Mean Corpuscular Volume 91.1 fL (78.0-98.0); Platelet Count 204 thou/uL (130-400); Red Blood Cell (RBC) Count 4.08 mill/uL (4.70-6.10); White Blood Cell (WBC) Count 9.3 thou/uL (4.8-10.8)
[2019-03-14 04:37] LABS: Anion Gap 13 mmol/L (10-20); BUN (Urea Nitrogen) 13 mg/dL (8.4-25.7); Calc. Creatinine Clearance 222 mL/min (70-130); Calcium 9.6 mg/dL (7.8-10.44); Carbon Dioxide 32 mmol/L (22-29); Chloride 96 mmol/L (98-107); Estimated GFR-MDRD Greater than 90; Glucose 136 mg/dL (70-105); Potassium 4.6 mmol/L (3.5-5.1); Sodium 136 mmol/L (136-145)
[2019-03-14] MEDS ORDERED: Escitalopram Oxalate 10 mg Tablet PO SCH (09:00)
[2019-03-14] MEDS ORDERED: Enoxaparin Sodium 40 MG/0.4 ML SYRINGE SC SCH (09:00)
[2019-03-14] MEDS: Famotidine 20 MG TAB PO SCH (09:24)
[2019-03-14] MEDS: Metoprolol Tartrate 100 MG TAB PO SCH (09:24)
[2019-03-14] MEDS: Hydrochlorothiazide 25 MG TAB PO SCH (09:24)
[2019-03-14] MEDS: Gabapentin 100 MG CAP PO SCH (09:24)
[2019-03-14] MEDS: Pioglitazone HCl 15 MG TAB PO SCH (09:24)
[2019-03-14 13:29] VITALS: BP 161/85; TEMP 97.5
--- NOTE | 2019-03-15 13:30 | EKG ---
Test Reason : NEAR SYNCOPE Blood Pressure : / mmHG Vent. Rate : 096 BPM Atrial Rate : 096 BPM P-R Int : 158 ms QRS Dur : 130 ms QT Int : 374 ms P-R-T Axes : 059 104 044 degrees QTc Int : 472 ms Normal sinus rhythm Right bundle branch block Abnormal ECG Confirmed by ED HERNÁNDEZ DO ([id number]), makeup editor DUNG COLEY ([id number] on 03/15/2019 1:29:59 PM Referred By: Confirmed By:ED HERNÁNDEZ DO
--- NOTE | 2019-03-17 07:59 | DIS ---
DATE OF ADMISSION: 03/12/2019 DATE OF DISCHARGE: 03/14/2019 DISCHARGE DISPOSITION: To home. PRIMARY DISCHARGE DIAGNOSES: Dizziness, likely benign positional vertigo. SECONDARY DISCHARGE DIAGNOSES: Diabetes mellitus type 2; prior history of benign positional vertigo, resolved with Carmen procedure more than 10 years back; dyslipidemia; restless legs syndrome; hypertension; posttraumatic stress disorder; anxiety disorder. PROCEDURES DONE DURING HOSPITALIZATION: MRI brain with and without contrast done was unremarkable. There was developmental and venous anomaly in the right frontal lobe. No restricted diffusion was seen. No mass or edema was seen in the brain on the MRI. Venous Doppler of left lower extremity done showed no evidence of DVT. Initial CT without contrast done was suggestive of possible focal area of hypodensity in the left temporal lobe, which has been ruled out on the MRI. H and H 11 and 37, platelet count 204, MCV is 91, BUN 13, creatinine 0.7. Troponin I x1 negative. Albumin is 4.1. DISCHARGE MEDICATIONS: 1. Albuterol inhaler q.4 hourly p.r.n.. 2. Lexapro 10 mg daily. 3. Gabapentin 200 mg twice daily. 4. Hydrochlorothiazide 12.5 mg p.o. daily. 5. Prevacid 30 mg p.o. daily. 6. Metformin 1000 mg twice daily. 7. Metoprolol tartrate 100 mg daily. 8. Actos 30 mg p.o. daily. 9. Ropinirole 1 mg p.o. q.p.m. 10. Crestor 10 mg p.o. at bedtime. 11. He is also on Mucinex and Tessalon. ALLERGIES: ALLERGIC TO PENICILLIN. DISCHARGE PLAN: The patient to follow up with primary care physician in 1 week. He also needs to follow up with the gait and vestibular clinic on Sunday. BRIEF COURSE DURING HOSPITALIZATION: The patient initially came in with complaints of dizziness. Initial CT brain without contrast was suggestive of possible right temporal lobe mass. He was placed under observation and has had MRI with and without contrast done, which did not reveal any mass. There is no acute CVA. The patient has had prior history of benign positional vertigo, which got resolved with Carmen maneuver more than 10 years back. He has been scheduled for a vestibular outpatient therapy with tilt-table testing and Carmen maneuver. Likely, the patient will have this done on Sunday. Prior to discharge, he is ambulating with minimal dizziness. No focal neurologic deficits seen. He is otherwise hemodynamically stable and neurologically stable prior to discharge. A complete stroke workup was done, which was negative for any acute infarct or bleed. Please note, I have seen and examined the patient on the day of discharge. Job ID: [id number]
== END 2019-03-14 13:55 | disposition home or self-care (01) ==
LOC: ERS 18:33 → ONC 21:45
PROVIDERS: ADMIT Internal Medicine; ATTEND Internal Medicine
DX: R42 Dizziness and giddiness (principal); E11.9 Type 2 diabetes mellitus without complications; E78.5 Hyperlipidemia, unspecified; G25.81 Restless legs syndrome; I10 Essential (primary) hypertension; F43.10 Post-traumatic stress disorder, unspecified; F41.9 Anxiety disorder, unspecified; I45.10 Unspecified right bundle-branch block; E66.9 Obesity, unspecified; Z68.41 Body mass index [BMI] 40.0-44.9, adult; Z86.69 Personal history of other diseases of the nervous system and sense organs; Z88.0 Allergy status to penicillin; Z79.84 Long term (current) use of oral hypoglycemic drugs; Z79.899 Other long term (current) drug therapy
CPT/HCPCS: 36415; 36416; 70450; 70553; 80048; 80053; 84484; 85025; 93005; 96360; 96361; 96372; A9577; G0378; J1650; J8597

== ENCOUNTER 2019-05-03 08:37 | Emergency (ER) | payer OTHER ==
[2019-05-03] MEDS ORDERED: Metoprolol Tartrate 50 MG TAB ONE (09:26)
--- NOTE | 2019-05-03 09:27 | RAD ---
EXAM: Chest 2 views: HISTORY: Cough with chest congestion COMPARISON: 11/18/2016 FINDINGS: Heart size:Within normal limits. Lungs:Clear of acute process. Atherosclerotic changes of the aorta. No confluent pneumonia, overt edema, pleural effusion, pneumothorax, or other significant acute proce ss. IMPRESSION: Atherosclerosis of the aorta. No acute intrathoracic disease.
[2019-05-03 09:43] LABS: #Eosinphils 0.3 thou/uL (0.0-0.7); #Lymphocytes 1.2 thou/uL (1.20-3.40); #Monocytes 0.6 thou/uL (0.11-0.59); #Neutrophils 10.5 thou/uL (1.40-6.50); %Basophils 0.1 % (0.0-1.0); %Eosinophils 2.5 % (0.0-10.0); %Lymphocytes 9.1 % (21.0-51.0); %Neutrophils 83.3 % (42.0-75.0); Hemoglobin 12.7 g/dL (14.0-18.0); Mean Corpuscular HGB CONC 33.7 g/dL (32.0-36.0); Mean Corpuscular Hemoglobin 30.5 pg (27.0-31.0); Mean Corpuscular Volume 90.5 fL (78.0-98.0); Mean Platelet Volume 6.6 fL (7.4-10.4); Platelet Count 219 thou/uL (130-400); Red Blood Cell (RBC) Count 4.16 mill/uL (4.70-6.10); White Blood Cell (WBC) Count 12.7 thou/uL (4.8-10.8)
[2019-05-03 10:05] LABS: ALT (SGPT) 34 U/L (8-55); AST (SGOT) 60 U/L (5-34); Albumin 4.2 g/dL (3.5-5.0); Alkaline Phosphatase 104 U/L (40-150); Anion Gap 14 mmol/L (10-20); BUN (Urea Nitrogen) 10 mg/dL (8.4-25.7); Bilirubin, Total 1.3 mg/dL (0.2-1.2); Calc. Creatinine Clearance 0 mL/min (70-130); Calcium 9.2 mg/dL (7.8-10.44); Carbon Dioxide 27 mmol/L (22-29); Chloride 97 mmol/L (98-107); Estimated GFR-MDRD Greater than 90; Globulin 3.1 g/dL (2.4-3.5); Glucose 127 mg/dL (70-105); Protein, Total 7.3 g/dL (6.0-8.3); Sodium 134 mmol/L (136-145)
[2019-05-03] MEDS ORDERED: Aspirin 325 MG TAB ONE (10:21)
[2019-05-03] MEDS ORDERED: Dexamethasone 10 MG/ML VIAL ONE (10:27)
[2019-05-03] MEDS ORDERED: Acetaminophen 500 MG TAB ONE (12:29)
== END 2019-05-03 18:05 | disposition home or self-care (01) ==
LOC: ERS 08:37
DX: J18.9 Pneumonia, unspecified organism (principal); E78.5 Hyperlipidemia, unspecified; I10 Essential (primary) hypertension; E11.40 Type 2 diabetes mellitus with diabetic neuropathy, unspecified; F41.9 Anxiety disorder, unspecified; F43.10 Post-traumatic stress disorder, unspecified
CPT/HCPCS: 36415; 71046; 80053; 83605; 83880; 84484; 85025; 87040; 93005; 94640; 94760; 96374; J1100; J7620

== ENCOUNTER 2019-10-23 16:42 | Outpatient (CLI) | payer OTHER, SELFPAY ==
--- NOTE | 2019-10-23 17:04 | RAD ---
PA AND LATERAL CHEST: 10/23/19 HISTORY: Cough. COMPARISON: 05/03/19 study. Heart size and mediastinum are within normal limits. The lungs are clear of infiltrates. There are ar thritic changes of the spine. IMPRESSION: No active intrathoracic disease. POS: [facility]
== END 2019-10-23 16:43 | disposition home or self-care (01) ==
LOC: SCSRAD 16:42
PROVIDERS: ATTEND Family Medicine
DX: J40 Bronchitis, not specified as acute or chronic (principal)
CPT/HCPCS: 71046

== ENCOUNTER 2025-09-02 20:25 | Emergency (ER) | payer BC, SELFPAY ==
[2025-09-02] MEDS ORDERED: Dexamethasone 10 MG/ML VIAL ONE (20:53)
[2025-09-02] MEDS ORDERED: Ketorolac Tromethamine 30 MG (1 mL) VIAL ONE (20:53)
[2025-09-02 21:18] LABS: #Basophils 0.06 10x3/uL (0.0-0.2); #Eosinophils 0.32 10x3/uL (0.0-0.7); #Monocytes 0.63 10x3/uL (0.11-0.59); #Neutrophils 7.30 10x3/uL (1.40-6.50); %Basophils 0.5 % (0.0-1.0); %Eosinophils 2.8 % (0.0-10.0); %Lymphocytes 26.1 % (21.0-51.0); %Monocytes 5.6 % (0.0-10.0); %Neutrophils 64.6 % (42.0-75.0); Hematocrit 41.9 % (42.0-52.0); Hemoglobin 13.6 g/dL (14.0-18.0); Mean Corpuscular Hemoglobin 28.6 pg (27.0-31.0); Mean Corpuscular Volume 88.2 fL (78.0-98.0); Platelet Count 184 10x3/uL (130-400); Red Blood Cell (RBC) Count 4.75 mill/uL (4.70-6.10); White Blood Cell (WBC) Count 11.30 10x3/uL (4.8-10.8)
[2025-09-02 21:33] LABS: ALT (SGPT) 31 U/L (Less than 45); AST (SGOT) 51 U/L (11-34); Albumin 3.7 g/dL (3.1-4.5); Alkaline Phosphatase 84 U/L (40-110); Anion Gap 15 mmol/L (10-20); BUN (Urea Nitrogen) 10 mg/dL (8.4-25.7); Bilirubin, Total 0.9 mg/dL (0.3-1.2); Calc. Creatinine Clearance 0 mL/min (70-130); Calcium 9.2 mg/dL (7.8-10.44); Carbon Dioxide 22 mmol/L (23-31); Chloride 104 mmol/L (98-107); Globulin 3.2 g/dL (2.4-3.5); Glucose 186 mg/dL (80-115); Magnesium 1.7 mg/dL (1.6-2.6); Potassium 3.8 mmol/L (3.5-5.1); Sodium 137 mmol/L (136-145)
== END 2025-09-02 22:44 | disposition home or self-care (01) ==
LOC: ERS 20:25
DX: J18.9 Pneumonia, unspecified organism (principal); I10 Essential (primary) hypertension; R91.1 Solitary pulmonary nodule; E78.5 Hyperlipidemia, unspecified; E11.40 Type 2 diabetes mellitus with diabetic neuropathy, unspecified; Z55.6 Problems related to health literacy; Z79.84 Long term (current) use of oral hypoglycemic drugs; Z79.899 Other long term (current) drug therapy
CPT/HCPCS: 71045; 71275; 80053; 83735; 83880; 84484; 85025; 87081; 87430; 93005; 96374; J1100; J1885